=== PATIENT | female | born 1975 | race Caucasian/White ===

== ENCOUNTER → 2020-06-01 11:27 | Outpatient (CLI) | payer OTHER, SELFPAY ==
--- NOTE | ~2020-06-01 | DEXA_ITS ---
Bone Density Report Name: Lilia Patel Age: 44 Sex: Female Ethnicity: White Date of : 1975 Indication: Screening for osteoporosis, height loss Referring Provider: PHYSICIAN NOT ON STAFF Study: Bone densitometry was performed. Exam Date: June 01, 2020 Accession number: [id number] Bone Density: Region BMD T-score Z-score Classification AP Spine (L1-L4) 0.921 -1.1 -0.8 Osteopenia Femoral Neck (Left) 0.592 -2.3 -1.9 Osteopenia Total Hip (Left) 0.687 -2.1 -1.8 Osteopenia Femoral Neck (Right) 0.625 -2.0 -1.6 Osteopenia Total Hip (Right) 0.625 -2.6 -2.3 Osteoporosis Total Hip Mean 0.656 -2.4 -2.1 Osteopenia World Health Organization criteria for BMD impression classify patients as: Normal (T-score at or above -1.0), Osteopenia (T-score between -1.0 and -2.5), or Osteoporosis (T-score at or below -2.5). 10-year Fracture Risk: FRAX not reported because: Some T-score for Spine Total or Hip Total or Femoral Neck at or below -2.5 Clinical Information Provided by Patient: Has used the following medications: Vitamin D, Calcium, Spironolactone, MTV Patient maximum height was 68 No regular weight bearing exercise Onset of menses at age 14 Premenopausal Number of children 2 Missed period for more than 6 months in a row Impression: The patient's bone mass is below expected range for age, gender and ethnicity based on the Right Total Hip Z-score. Discussion: BONE DENSITY IS ABNORMALLY LOW FOR AGE, SEX, AND RACE. This patient's lowest Z-score is -2.0 or more below average for age, sex, and race at one or more sites. This may be due to low peak bone mass or to excessive bone loss. There may be some underlying disease or condition contributing to reduced bone mass. Further evaluation should be considered. Although there is a predictable association between low bone mass and the risk of osteoporotic fractures in untreated postmenopausal women, there are no data relating bone density and fracture risk in younger women. The ISCD position is that the diagnosis of ?low bone mass? or ?osteoporosis? should not be made on densitometric criteria alone. WHO criteria only apply to postmenopausal women. The 10-year fracture risk calculated by FRAX is less than the threshold recommended by the National Osteoporosis Foundation (NOF) for treatment for postmenopausal women, and no threshold has been established for premenopausal women. All treatment decisions require clinical judgment and consideration of individual patient factors, including patient preferences, comorbidities, previous drug use, risk factors not captured in the FRAX model (e.g., frailty, falls, vitamin D deficiency, increased bone turnover, interval significant decline in bone density) and possible under or overestimation of fracture risk by FRAX. Although pharmacologic
--- NOTE | ~2020-06-01 | CT_ITS ---
EXAMINATION: CT chest abdomen pelvis wo con DATE: 06/01/2020 12:18 INDICATION: Weight loss. Family history of thyroid disease. Bloating. TECHNIQUE: Computed tomography (CT) of the chest, abdomen, and pelvis was performed without intraveno us contrast. Automated exposure control and iterative reconstruction technique were employed. Exam do se: 271.42 mGy-cm total exam DLP. COMPARISON: None FINDINGS: CHEST CT: Small pericardial effusion. Normal heart size. No hilar or mediastinal mass lesion or lymphadenopat hy. No thoracic aortic aneurysm. Mild bilateral apical scarring. No pulmonary infiltrate or consolidation. No pleural effusion. No pneumothorax. ABDOMEN/PELVIS CT: The liver, spleen, pancreas, adrenal glands and kidneys are unremarkable on this limited noncontrast examination. No bile or pancreatic duct dilatation. No urinary tract calculus or hydroureteronephro sis. Normal caliber of the abdominal aorta. No intraperitoneal or retroperitoneal or pelvic mass lesion o r lymphadenopathy or ascites. The urinary bladder, uterus and adnexal areas are unremarkable. There is a prominent amount of feces in the colon, but no obstruction. No pneumatosis or intraperito alejandra free air. Acute lumbosacral angle. No suspicious osteolytic or osteoblastic lesions. IMPRESSION: Small pericardial effusion Reviewed, dictated and finalized at Location A. Reviewed, dictated and finalized at location A. IMPRESSION: Small pericardial effusion
== END ==
DX: Z13.820 Encounter for screening for osteoporosis (principal); I31.3 Pericardial effusion (noninflammatory); M85.89 Other specified disorders of bone density and structure, multiple sites; M81.0 Age-related osteoporosis without current pathological fracture
CPT/HCPCS: 71250; 74176; 77080

== ENCOUNTER 2020-07-02 12:47 | Outpatient (CLI) | payer OTHER, SELFPAY ==
--- NOTE | 2020-07-02 | ECHO_ITS ---
Patient Info Name: Lilia Patel Age: 45 years : 1975 Gender: Female Ht: 67 in Wt: 95 lbs BSA: 1.41 m2 HR: 60 bpm BP: 97 / 66 mmHg Heart Rhythm: Sinus Rhythm Technical Quality: Good Exam Date: 07/02/2020 1:15 PM Exam Location: [facility] Patient Status: Outpatient Admit Date: 07/02/2020 Staff Ordering Physician: PHYSICIAN NOT ON STAFF, NONSTAFF Coordinator Of Genetic Services: Deo Trevino RDCS, RT Attending Provider: PHYSICIAN NOT ON STAFF, NONSTAFF Exam Type: CA echo doppler color flow Study Info Indications I31.3 - Pericardial effusion (noninflammatory) Complete two-dimensional, color flow and Doppler transthoracic echocardiogram is performed. Summary 1. Complete two-dimensional, color flow and Doppler transthoracic echocardiogram is performed. 2. Trivial pericardial effusion. 3. Mild bileaflet mitral valve prolapse with no mitral regurgitation. Left Ventricular Outflow Tract Name Value Normal LVOT 2D LVOT Diameter 2.0 cm LVOT Doppler LVOT Peak Gradient 2 mmHg LVOT Mean Gradient 1 mmHg LVOT VTI 16 cm LVOT VTI/AV VTI Ratio 0.8 LVOT Stroke Volume 48 ml LVOT CO 2.9 l/min LVOT CI 2.1 l/min/m2 Mitral Valve Name Value Normal MV Doppler MV Decel Morris 359 cm/s2 MV PHT 70 ms MV Area (PHT) 3.2 cm2 4.0-5.0 MV Diastolic Function MV E Peak Velocity 86 cm/s MV A Peak Velocity 39 cm/s MV E/A 2.2 MV Decel Time 240 ms MV Annular TDI MV E/e' (Septal) 7.5 <=8.0 MV E/e' (Lateral) 6.9 <=8.0 MV E/e' (Average) 7.2 Tricuspid Valve Name Value Normal TV Regurgitation Doppler TR Peak Velocity 213 cm/s TR Peak Gradient 16 mmHg TV Diastolic Function RV MPI 0.21 <=0.43 Aortic Valve Name Value Normal
== END 2020-07-02 12:48 | disposition home or self-care (01) ==
DX: I34.1 Nonrheumatic mitral (valve) prolapse (principal); I31.3 Pericardial effusion (noninflammatory)
CPT/HCPCS: 93306

== ENCOUNTER → 2020-08-07 11:33 | Outpatient (CLI) | payer OTHER, SELFPAY ==
--- NOTE | ~2020-08-07 | MM_ITS ---
EXAMINATION: MM screening umair BI w david HISTORY: Screening mammogram TECHNIQUE: Craniocaudal and mediolateral oblique 3-D tomosynthesis images were obtained and synthetic 2-D images were generated. CAD analysis was submitted and interpreted. COMPARISON: 12/15/2018 BREAST PARENCHYMAL COMPOSITION: The breasts are heterogeneously dense, which may obscure small masses . FINDINGS: Scattered benign-appearing calcifications are present. There is no evidence of suspicious m ass, calcification, or architectural distortion to suggest malignancy in either breast. There has bee n no suspicious interval change. IMPRESSION: 1. No mammographic evidence of malignancy. 2. Recommend routine screening mammography in one year. BI-RADS Category 2: Benign finding(s). Reviewed, dictated and finalized at location A. TATION TECHNICIAN
== END ==
PROVIDERS: PCP Family Medicine; Visit Provider Family Medicine
DX: Z12.31 Encounter for screening mammogram for malignant neoplasm of breast (principal)
CPT/HCPCS: 77063; 77067

== ENCOUNTER → 2021-01-25 07:52 | Outpatient (CLI) | payer OTHER, SELFPAY ==
--- NOTE | ~2021-01-25 | US_ITS ---
US right upper quadrant INDICATION: Elevated liver enzymes PROCEDURE: Realtime right upper abdominal ultrasound. COMPARISON: No prior studies for comparison. FINDINGS: The pancreas is normal without focal mass or pancreatic ductal dilation. Liver echotexture is normal without focal mass or intrahepatic biliary dilatation. There is normal directional flow i n the portal vein. The gallbladder is normal without stones, gallbladder wall thickening or pericholecystic fluid. Comm on bile duct measures 3 mm. No sonographic Trevino's sign. IMPRESSION: 1: Normal limited abdominal ultrasound. Reviewed, dictated and finalized at location B.
== END ==
PROVIDERS: PCP Family Medicine; Visit Provider Family Medicine
DX: R74.8 Abnormal levels of other serum enzymes (principal)
CPT/HCPCS: 76705

== ENCOUNTER → 2022-12-05 09:19 | Outpatient (CLI) | payer OTHER, SELFPAY ==
--- NOTE | ~2022-12-05 | DEXA_ITS ---
Bone Density Report Name: RANDEE HERRING Age: 47 Sex: Female Ethnicity: White Date of : 1975 Indication: postmenopausal osteoporosis; Referring Provider: PEGGY, SILVERIO Study: Bone densitometry was performed. Exam Date: December 05, 2022 Accession number: [id number] Bone Density: Region BMD T-score Z-score Classification AP Spine (L1-L4) 0.905 -1.3 -0.8 Osteopenia Femoral Neck (Left) 0.564 -2.6 -2.1 Osteoporosis Total Hip (Left) 0.664 -2.3 -1.9 Osteopenia Femoral Neck (Right) 0.576 -2.5 -1.9 Osteoporosis Total Hip (Right) 0.583 -2.9 -2.6 Osteoporosis Total Hip Mean 0.624 -2.6 -2.3 Osteoporosis World Health Organization criteria for BMD impression classify patients as: Normal (T-score at or above -1.0), Osteopenia (T-score between -1.0 and -2.5), or Osteoporosis (T-score at or below -2.5). 10-year Fracture Risk: FRAX not reported because: Some T-score for Spine Total or Hip Total or Femoral Neck at or below -2.5 Previous Exams: Region Exam Age BMD T-score BMD Change BMD Change Date g/cm2 vs Baseline vs Previous AP Spine(L1-L4) 12/05/2022 47 0.905 -1.3 -0.015 -0.015 06/01/2020 44 0.921 -1.1 Total Hip(Left) 12/05/2022 47 0.664 -2.3 -0.023 -0.023 06/01/2020 44 0.687 -2.1 Total Hip(Right) 12/05/2022 47 0.583 -2.9 -0.042* -0.042* 06/01/2020 44 0.625 -2.6 *Denotes significance at 95% confidence level, LSC for AP Spine = 0.022 g/cm2, LSC for Total Hip = 0.027 g/cm2 Clinical Information Provided by Patient: Has used the following medications: Vitamin D, Calcium, MTV Patient maximum height was 68 Menopause Age: 41 No regular weight bearing exercise Drinks caffeinated beverages Onset of menses at age 14 Number of children 2 Missed period for more than 6 months in a row Impression: The patient has osteoporosis, based on the Right Total Hip T-score. The BMD for the Total Hip(Right) decreased, changing by -0.042 since the last DXA exam. Discussion: HIGH RISK OF FRACTURE. BONE DENSITY IS UNDESIRABLY LOW AT ONE OR MORE SKELETAL SITES, CONSISTENT WITH OSTEOPOROSIS. ALSO, BONE DENSITY IS LOWER THAN EXPECTED FOR AGE AND SEX AT ONE OR MORE SKELETAL SITES; RECOMMEND A DILIGENT SEARCH FOR SECONDARY CAUSES OF BONE LOSS. This patient's lowest T-score meets the World Health Organization's (WHO) criteria for osteoporosis at one or more sites (T-score -2.5 or below). In untreated patients, the r
== END ==
PROVIDERS: PCP Family Medicine; Visit Provider Family Medicine
DX: M85.89 Other specified disorders of bone density and structure, multiple sites (principal); M81.0 Age-related osteoporosis without current pathological fracture
CPT/HCPCS: 77080

== ENCOUNTER → 2023-08-07 13:53 | Outpatient (CLI) | payer OTHER, SELFPAY ==
--- NOTE | ~2023-08-07 | US_ITS ---
EXAMINATION: US transvaginal DATE: 08/07/2023 14:22 INDICATION: Irregular menstruation TECHNIQUE: Multiple endovaginal sonographic images of the pelvis were obtained. COMPARISON: None. FINDINGS: The uterus measures 7.9 x 3.4 x 4.3 cm. The endometrial complex measures 5 mm. The right ov mart measures 1.7 x 2 x 1.2 cm. The left ovary measures 2.1 x 0.9 x 2 cm. There is normal vascular kiki w in the ovaries. There is no free fluid in the pelvis. IMPRESSION: 1. No sonographic correlate for the patient's symptoms. Reviewed, dictated and finalized at location B. CH LANGUAGE PATHOLOGIST PRN
== END ==
PROVIDERS: PCP Family Medicine; Visit Provider Family Medicine
DX: N92.6 Irregular menstruation, unspecified (principal)
CPT/HCPCS: 76830

== ENCOUNTER → 2023-10-09 14:59 | Outpatient (CLI) | payer OTHER, SELFPAY ==
--- NOTE | ~2023-10-09 | MM_ITS ---
EXAMINATION: MM screening umair BI w david HISTORY: Screening TECHNIQUE: Craniocaudal and mediolateral oblique 3-D tomosynthesis images were obtained and synthetic 2-D images were generated. CAD analysis was submitted and interpreted. COMPARISON: Comparison to multiple prior studies sequentially, with oldest reviewed study dated 12/24. BREAST PARENCHYMAL COMPOSITION: The breasts are heterogeneously dense, which may obscure small masses FINDINGS: Stable benign-appearing right breast calcifications. There is no evidence of suspicious mas s, calcification, or architectural distortion to suggest malignancy in either breast. There has been no suspicious interval change. IMPRESSION: 1. No mammographic evidence of malignancy. 2. Recommend routine screening mammography in one year. BI-RADS Category 2: Benign finding(s). Reviewed, dictated and finalized at location A. R FABRICATION TECHNICIAN
== END ==
PROVIDERS: PCP Family Medicine; Visit Provider Family Medicine
DX: Z12.31 Encounter for screening mammogram for malignant neoplasm of breast (principal)
CPT/HCPCS: 77063; 77067

== ENCOUNTER 2024-01-27 08:43 | Emergency (ER) | payer OTHER, SELFPAY ==
[2024-01-27 08:48] VITALS: BP 99/52; PULSE 71; RESP 16; TEMP 36.2; O2SAT 100
--- NOTE | 2024-01-27 09:22 | ED.GENADULT ---
HPI - General Adult General Chief complaint: Nausea/Vomiting/Diarrhea Stated complaint: FACIAL/SCALP REDNESS/PRESSURE/NAUSEA/LIGHT HEADED Time Seen by Provider: 01/27/24 09:04 Source: patient and RN notes reviewed Mode of arrival: ambulatory Limitations: no limitations History of Present Illness HPI narrative: Patient presents today complaining of sudden onset near syncopal episode, nausea, facial flushing and redness extending to her scalp. States this started after taking a new brand B vitamin at home and lasted approximately 20 mins. She also started experiencing some abdominal cramping. She did not pass out. Upon arrival at [facility], she had a loose stool. Denies facial swelling, shortness of breath, difficulty swallowing. Related Data Home Medications Medication Instructions Recorded Confirmed metronidazole 0.75 % (37.5 mg/5 1 appful vaginal HS 01/27/24 01/27/24 gram) vaginal gel Allergies Allergy/AdvReac Type Severity Reaction Status Date / Time No Known Allergies Allergy Mild Verified 01/27/24 09:05 Review of Systems Review of Systems: CONSTITUTIONAL: Denies body aches, fever, chills, or sweats. EYES: Denies visual changes, redness, or discharge. ENT: Denies rhinorrhea, congestion, sore throat, or otalgia. CARDIOVASCULAR: Denies chest pain, palpitations, or edema. RESPIRATORY: Denies cough or dyspnea. GASTROINTESTINAL: Denies abdominal pain, vomiting, or diarrhea.+ nausea, abdominal cramping GENITOURINARY: Denies dysuria or hematuria. SKIN: Denies rash, itching, or wounds. + flushing and rash-resolved MUSCULOSKELETAL: Denies back pain, joint pain, or myalgia. NEUROLOGIC: Denies headache, numbness, tingling, or weakness. + lightheadedness, near-syncope PSYCH: Denies depression or anxiety. PMFSH Social History Social History Smoking status: Never smoker Second hand tobacco smoke exposure: No Alcohol intake: current Drinks per week: 1 Substance use: never Comments At time of signature, I have reviewed and agree with nursing past medical, surgical, social and family history unless otherwise noted. Please see nursing chart for further information. There is no relevant family history pertinent to the presenting complaint Exam Narrative: GENERAL: Chronically ill appearing, well-nourished, and in no acute distress. HEAD: Normocephalic, atraumatic. No facial swelling noted. EYES: EOMI. PERRL. No redness or drainage. Conjunctivae normal. ENT: Mucous membranes pink and moist. Nares clear. No rhinorrhea. Throat normal. Uvula midline. NECK: Normal AROM. Supple. No lymphadenopathy. CHEST: No respiratory distress. Clear to auscultation. HEART: Regular rate and rhythm. No murmur appreciated. ABDOMEN: Soft, nontender, nondistended, normal active bowel sounds. MUSCULOSKELETAL: No bony tenderness. EXTREMITIES: Normal range of motion. No edema. SKIN: Warm, dry, no rash. Capillary refill normal. Normal skin turgor. Mild generalized skin pallor. NEURO: No focal deficits. Alert and oriented x3. Gait steady. PSYCH: Patient talks very slowly and softly. Seems to be baseline. Course Course Level of Care: Express Care Visit Vital Signs Vital signs: Vital Signs Temperature 97.1 F L 01/27/24 08:48 Pulse Rate 71 01/27/24 08:48 Respiratory Rate 16 01/27/24 08:48 Blood Pressure 99/52 L 01/27/24 08:48 Pulse Oximetry 100 01/27/24 08:48 Temperature 97.1 F L 01/27/24 08:48 Pulse Rate 71 01/27/24 08:48 Respiratory Rate 16 01/27/24 08:48 Blood Pressure 99/52 L 01/27/24 08:48 Pulse Oximetry 100 01/27/24 08:48 Oxygen Delivery Room Air 01/27/24 08:52 Reviewed Transfer Transfered to: [place] Transportation: Other (Private vehicle) Transfer rationale: Near syncope, abdominal cramping Accepting physician: Santiago Medical Decision Making MDM Narrative Medical decision making narrative: At
--- NOTE | 2024-01-27 09:26 | PC.NURSE ---
PT REPORTED SHE HAD A LOOSE STOOL WHILE AT URGENT CARE. PT IS REQUESTING TO GO TO [facility] FOR FURTHER EVALUATION. IS AT BEDSIDE. PT AMBULATED TO WITHOUT DIFFICULTY.
== END 2024-01-27 09:30 | disposition short-term general hospital (02) ==
PROVIDERS: Emergency Provider Nurse Practitioner; PCP Family Medicine
DX: R55 Syncope and collapse (principal); R10.9 Unspecified abdominal pain
CPT/HCPCS: 99213; G0463

== ENCOUNTER 2024-01-27 09:48 | Emergency (ER) | payer OTHER, SELFPAY ==
[2024-01-27] VITALS (8 sets, daily range): BP systolic 103–118; BP diastolic 62–77; PULSE 58–73; RESP 13–20; TEMP 36.6–36.7; O2SAT 100
--- NOTE | 2024-01-27 10:02 | ECG_ITS ---
SEE SCANNED COPY FOR CONFIRMED REPORT. MTDD
[2024-01-27 10:23] LABS: Basophils Percent Auto 0.4 % (0.2-1.2); Eosinophils Absolute Auto 0.1 K/mm3 (0-0.3); Eosinophils Percent Auto 1.4 % (0-4.4); Hematocrit 36.9 % (37.0-47.0); Hemoglobin 12.1 g/dL (12.0-15.0); Immature Granulocyte Absolute 0.03 K/mm3 (0.00-0.031); Immature Granulocyte Percent A 0.4 % (0-0.5); Lymphocytes Absolute Auto 0.47 K/mm3 (0.9-3.2); Lymphocytes Percent Auto 6.6 % (18.3-44.2); Mean Corpuscular HGB Conc 32.8 g/dl (32-36); Mean Corpuscular Hemoglobin 29.8 pg (26-34); Mean Corpuscular Volume 90.9 fl (80-100); Mean Platelet Volume 10.1 fl (7.4-10.4); Monocytes Absolute Auto 0.5 K/mm3 (0.1-0.6); Monocytes Percent Auto 7.4 % (2.6-8.5); Neutrophils Percent Auto 83.8 % (45.5-73.1); Platelet Count Result 195 k/mm3 (150-375); Red Blood Count 4.06 M/mm3 (4.2-5.4); Red Cell Distribution Width 13.7 % (11.5-14.5); White Blood Count 7.1 K/mm3 (4.5-10.0)
[2024-01-27 10:32] LABS: Alanine Aminotransferase 28 U/L (6-35); Albumin Level 4.1 g/dL (3.5-5.1); Alkaline Phosphatase 75 U/L (38-126); Anion Gap 4 mmol/L (4-12); Aspartate Amino Transferase 32 U/L (14-36); Bilirubin,Total 0.6 mg/dL (0.2-1.3); Blood Urea Nitrogen 19 mg/dL (7-17); Calcium 9.1 mg/dL (8.4-10.2); Carbon Dioxide 28 mmol/L (22-30); Chloride 103 mmol/L (98-107); Estimated CRCL calculation 74 ml/min; Estimated Glomerular Filt Rate > 60; Glucose 97 mg/dL (65-110); Potassium 3.9 mmol/L (3.4-5.0); Sodium 135 mmol/L (137-145)
[2024-01-27] MEDS: SODIUM CHLORIDE 0.9% IV 1,000 ML 999 ML IV CONT (11:09)
--- NOTE | 2024-01-27 12:15 | ED.GENADULT ---
HPI - General Adult General Chief complaint: Dizziness Stated complaint: ?reaction to vit B Time Seen by Provider: 01/27/24 10:12 History of Present Illness HPI narrative: Patient is a 48-year-old female who presents ER after having a possible reaction to medication. She took her 1st dose of vitamin B complex. 30 minutes later she developed flushing of her skin. She then got upset stomach and had some diarrhea. She did feel lightheaded. She went to urgent care but was referred here. Symptoms have since resolved. After reviewing medication it appears she had 50mg of Niacin in the vitamin Related Data Home Medications Medication Instructions Recorded Confirmed metronidazole 0.75 % (37.5 mg/5 1 appful vaginal HS 01/27/24 01/27/24 gram) vaginal gel Allergies Allergy/AdvReac Type Severity Reaction Status Date / Time No Known Allergies Allergy Mild Verified 01/27/24 09:05 Review of Systems Review of Systems: All systems reviewed & are unremarkable except as noted in HPI and below Constitutional: Constitutional: Reports no additional constitutional complaints ENT: Reports system reviewed and no additional complaints, except as documented Respiratory: Respiratory: Reports no additional respiratory complaints Gastrointestinal: Gastrointestinal: Reports abdominal pain, Denies constipation, Reports diarrhea and Denies vomiting Genitourinary: Genitourinary: Reports no additional female genitourinary complaints Musculoskeletal: Musculoskeletal: Reports no additional musculoskeletal complaints Integumentary/Breasts: Skin/Breast: Reports erythema and Reports rash PMFSH Past Medical History Medical History (Updated 01/27/24 @ 12:24 by Femi Henderson MD) Healthy female adult Social History Social History Smoking status: Never smoker Second hand tobacco smoke exposure: No Alcohol intake: current Drinks per week: 1 Substance use: never Exam Narrative: GENERAL: Well-appearing, well-nourished, and in no acute distress. HEAD: Normocephalic, atraumatic. ENT: Mucous membranes moist. CHEST: Clear to auscultation. No respiratory distress. HEART: Regular rate and rhythm. Normal peripheral pulses. ABDOMEN: Soft, nontender, nondistended. EXTREMITIES: Normal range of motion. No edema. SKIN: Warm, dry, no rash. NEURO: Alert and oriented x3. PSYCH: Normal mood and affect. Course Course Emergency Course: symptoms considered be a side effect of high-dose niacin. Patient educated about vitamin supplements. Discharge. Vital Signs Vital signs: Vital Signs Temperature 98.0 F 01/27/24 09:57 Pulse Rate 68 01/27/24 09:57 Respiratory Rate 14 01/27/24 09:57 Blood Pressure 103/62 01/27/24 09:57 Pulse Oximetry 100 01/27/24 09:57 Oxygen Delivery Room Air 01/27/24 09:57 Temperature 98.0 F 01/27/24 09:57 Pulse Rate 68 01/27/24 10:02 Respiratory Rate 14 01/27/24 09:57 Blood Pressure 117/77 01/27/24 10:02 Pulse Oximetry 100 01/27/24 09:57 Oxygen Delivery Room Air 01/27/24 09:57 Medical Decision Making Vital Signs Vital Signs: Vital Signs Temperature 98.0 F 01/27/24 09:57 Pulse Rate 68 01/27/24 09:57 Respiratory Rate 14 01/27/24 09:57 Blood Pressure 103/62 01/27/24 09:57 Pulse Oximetry 100 01/27/24 09:57 Oxygen Delivery Room Air 01/27/24 09:57 Temperature 98.0 F 01/27/24 09:57 Pulse Rate 68 01/27/24 10:02 Respiratory Rate 14 01/27/24 09:57 Blood Pressure 117/77 01/27/24 10:02 Pulse Oximetry 100 01/27/24 09:57 Oxygen Delivery Room Air 01/27/24 09:57 Lab Data 01/27/24 10:17 01/27/24 10:17 Labs: Lab Results 01/27/24 Range/Units 10:17 WBC 7.1 (4.5-10.0) K/mm3 RBC 4.06 L (4.2-5.4) M/mm3 Hgb 12.1 (12.0-15.0) g/dL Hct 36.9 L (37.0-47.0) % MCV 90.9 (80-100) fl MCH 29.8 (26-34) pg
== END 2024-01-27 12:35 | disposition home or self-care (01) ==
PROVIDERS: Emergency Provider Emergency Medicine; PCP Family Medicine
DX: R19.7 Diarrhea, unspecified (principal); R23.2 Flushing; R11.0 Nausea; T46.7X5A Adverse effect of peripheral vasodilators, initial encounter; I45.10 Unspecified right bundle-branch block; R00.1 Bradycardia, unspecified
CPT/HCPCS: 36415; 80053; 85025; 93005; 99284; J7030

== ENCOUNTER 2024-12-06 12:46 | Outpatient (CLI) | payer OTHER, SELFPAY ==
--- NOTE | ~2024-12-06 | DEXA_ITS ---
Bone Density Report Name: RANDEE HERRING Age: 49 Sex: Female Ethnicity: White Date of : 1975 Indication: Referring Provider: MISSY, ARLETTE Study: Bone densitometry was performed. Exam Date: December 06, 2024 Accession number: [id number] Bone Density: Region BMD T-score Z-score Classification AP Spine(L1-L4) 0.884 -1.5 -0.8 Osteopenia Femoral Neck (Left) 0.582 -2.4 -1.8 Osteopenia Total Hip (Left) 0.674 -2.2 -1.8 Osteopenia Femoral Neck (Right) 0.583 -2.4 -1.8 Osteopenia Total Hip (Right) 0.639 -2.5 -2.1 Osteoporosis Total Hip Mean 0.656 -2.4 -2.0 Osteopenia World Health Organization criteria for BMD impression classify patients as: Normal (T-score at or above -1.0), Osteopenia (T-score between -1.0 and -2.5), or Osteoporosis (T-score at or below -2.5). 10-year Fracture Risk: FRAX not reported because: Premenopausal woman Some T-score for Spine Total or Hip Total or Femoral Neck at or below -2.5 Clinical Information Provided by Patient: Has used the following medications: Vitamin D, Calcium Patient maximum height was 68 No regular weight bearing exercise Drinks caffeinated beverages Onset of menses at age 14 Premenopausal Number of children 2 Missed period for more than 6 months in a row Impression: The patient's bone mass is below expected range for age, gender and ethnicity based on the Right Total Hip Z-score. Discussion: BONE DENSITY IS ABNORMALLY LOW FOR AGE, SEX, AND RACE. This patient's lowest Z-score is -2.0 or more below average for age, sex, and race at one or more sites. This may be due to low peak bone mass or to excessive bone loss. There may be some underlying disease or condition contributing to reduced bone mass. Further evaluation should be considered. Although there is a predictable association between low bone mass and the risk of osteoporotic fractures in untreated postmenopausal women, there are no data relating bone density and fracture risk in younger women. The ISCD position is that the diagnosis of ?low bone mass? or ?osteoporosis? should not be made on densitometric criteria alone. WHO criteria only apply to postmenopausal women. The 10-year fracture risk calculated by FRAX is less than the threshold recommended by the National Osteoporosis Foundation (NOF) for treatment for postmenopausal women, and no threshold has been established for premenopausal women. All treatment decisions require clinical judgment and consideration of individual patient factors, including patient preferences, comorbidities, previous drug use, risk factors not captured in the FRAX model (e.g., frailty, falls, vitamin D deficiency, increased bone turnover, interval significant decline in bone density) and possible under or overestimation of fracture risk by FRAX. Although pharmacologic therapy is sometimes indicated for patients with Z-scores in this range, there is little information available. A decision to treat should be based on a thorough consideration of benefits and risks. The patient should follow a healthful lifestyle (good nutrition with adequate calcium and vitamin D, and appropriate weight-bearing exercise). Follow-Up: Consider a repeat BMD and Vertebral Fracture Assessment (VFA) exam in 2 years or sooner if medically necessary, to reassess this patient's status. Reported by: BEATRICE on 12/06/2024 1:24:00 PM. Reviewed, dictated and finalized at location A. MIGUEL
--- OUTSIDE RECORDS SUMMARY | 2024-12-06 13:58 | XMS_ITS | Clinical Summary ---
Author Organization [facility] Address [address] [place] [address] Care Team Providers Care Solution Director Name Role Phone Shikha David MD Primary Care Provider Source Comments [facility],non-owned Affiliates and Associated Physician Practices is amultiple site organization consisting of ambulatory clinics and hospital sitesin [place], [place], [place] and [place]. This disclosure is being madepursuant to the Care Everywhere program and may not contain all information available regarding this patient. Last updated 18.[facility] Active Problems Problem Noted Date Diagnosed Date Abnormal levels of other serum enzymes 5 Overview (12/28/2017): Mild elevations in the 30's Low level positive ASMA titer, GEORGETTE negative 12/2014 AST 25, ALT 27 04/2015- LABS Iron % sat 27, tsh 1.46, Creatinine 0.77, t bili 0.8, ap 70, ALT 20, AST 24, WBC 6.5, Hgb 14.1, Plt 235 Acne 01/08/2015 Overview (12/28/2017): Started spironolactone in 2014 Other seasonal allergic rhinitis 01/08/2015 Amenorrhea 01/08/2015 Overview (12/28/2017): Since delivering second child Sep 2012 Social History Tobacco Use Types Packs/Day Years Used Date Smoking Tobacco: Never Smokeless Tobacco: Never Alcohol Use Standard Drinks/Week Comments Yes 0 (1 standard drink = 0.6 oz pur e alcohol) Sex and Gender Information Value Date Recorded Sex Assigned at Not on file Gender Identity Not on file Sexual Orientation Not on file Last Filed Vital Signs Vital Sign Reading Time Taken Comments Blood Pressure 96/57 02/27/2015 2:10 PM CDT Pulse 75 02/27/2015 2:10 PM CDT Temperature 36.8 C (98.2 F) 02/27/2015 2:10 PM CDT Respiratory Rate 18 02/27/2015 2:10 PM CDT Oxygen Saturation - - Inhaled Oxygen Concentration - - Weight 46.2 kg (101 lb 14.4 oz) 02/27/2015 2:10 PM CDT Height 170.2 cm (5' 7 ) 02/27/2015 2:10 PM CDT Body Mass Index 15.96 02/27/2015 2:10 PM CDT Plan of Treatment Health Maintenance Due Date Last Done Comments COLOGUARD (AGES 45-75) - COL ON CA SCREENING 1975 COLON MONITORING 1975 COLONOSCOPY - COLON CA SCREENING 1976 CT COLONOGRAPHY - COLON CA SCREENING 1975 Colorectal Cancer Screening 1975 FIT - COLON CA SCREENING 1975 FLEX SIG - COLON CA SCREENING 1975 LIPID TESTING 1975 MAMMOGRAM 1975 PAP SMEAR 1975 HIV SCREENING 1991 HEPATITIS C SCREENING 06/09/1994 DTAP/TDAP/TD VACCINES (1 - Tdap) 1995 HEPATITIS B VACCINE (1 of 3 - 19+ 3-dose series) 1995 COVID-19 VACCINE ( - 2023-2 5 season) 2024 INFLUENZA VACCINE (#1) 2024 DEPRESSION SCREENING 09/28/2024 ZOSTER VACCINE (1 of 2) 2026 HIB VACCINE Aged Out No longer eligi ble based on patient's age to complete this topic HPV VACCINE Aged Out No longer eligi ble based on patient's age to complete this topic MENINGOCOCCAL (Group B) VACCINE Aged Out No longer eligible based on patient's age to complete this topic MENINGOCOCCAL VACCINE Aged Out No vandana rosanna eligible based on patient's age to complete this topic PNEUMOCOCCAL VACCINE Aged Out No long er eligible based on patient's age to complete this topic Care Teams Solution Director Relationship Specialty Start Date End Date Shikha David MD [address] [place] [address] [address] [place] [id number] PCP - General 04/15/10
--- OUTSIDE RECORDS SUMMARY | 2024-12-06 13:58 | XMS_ITS | Encounter Summary ---
Author Organization [facility] Address [address] [place] [address] Care Team Providers Care Executive Cyber Leader Name Role Phone Madelyn Arvizu DO Primary Care Provider [phone] Encounter Details Date Type Department Care Team (Latest Contact Info) Description 05/07/2022 [employer] Message Enc [facility] Family Medicine [facility] [address], [address] [place] [address] [employer], [facility] Provider Dr. Arvizu recommendations Social History Tobacco Use Types Packs/Day Years Used Date Smoking Tobacco: Never Smokeless Tobacco: Never Alcohol Use Standard Drinks/Week Comments Yes 0 (1 standard drink = 0.6 oz pur e alcohol) PHQ-2 Answer Date Recorded PHQ-2 Score - If the patient scores above 3, please move on to questions 3-9 2 04/30/2022 Comments No Sex and Gender Information Value Date Recorded Sex Assigned at Not on file Legal Sex Female 4:09 PM CDT Gender Identity Not on file Sexual Orientation Not on file COVID-19 Exposure Response Date Recorded In the last 10 days, have yo u been in contact with someone who was confirmed or suspected to have Coronavirus/COVID-19? No / Unsure 04/30/2022 9:53 AM CDT documented as of this encounter Plan of Treatment Not on file documented as of this encounter Visit Diagnoses Not on filedocumented in this encounter Additional Health Concerns Assessment Noted Time PHQ-9 Depression Total Score: 5 04/30/20 22 11:08 AM CDT documented as of this encounter Care Teams Executive Cyber Leader Relationship Specialty Start Date End Date Madelyn Arvizu DO [address] [place] [address] PCP - General FAMILY PRACTICE 05/23/20 documented as of this encounter
--- OUTSIDE RECORDS SUMMARY | 2024-12-06 13:58 | XMS_ITS | Clinical Summary ---
Author Organization [facility] Address [place] [address] Care Team Providers Care Estate Conservator Name Role Phone Madelyn Arvizu DO Primary Care Provider [phone] Allergies Active Allergy Reactions Criticality Noted Date Comments Latex Unknown 07/17/2023 Medications ACZONE 7.5 % Gel as needed. 12/13/2019 Active Bacillus Coagulans-Inuli n (PROBIOTIC) 1-250 BILLION-MG Cap Activ e Multiple Vitamins-Minera ls (MULTIVITAMIN ADULT OR) Active [place]-3 Fatty Acids (OMEGA-3 FISH OIL OR) Active CALCIUM OR Active acetylcysteine (NAC) 600 MG Cap Active Digestive Enzymes Cap Active Menatetrenone (VITAMIN K2) 100 MCG Tab Active Clascoterone (WINLEVI) 1 % Cream Active B Complex Cap capsule Take 1 capsule by mouth daily. Active Active Problems Problem Noted Date Diagnosed Date Venous stasis of both lower extremities 06/12/20 22 Abnormal uterine bleeding (AUB) 12/05/2019 Mildly underweight adult 12/05/2019 Natural family planning 11/12/2017 Instruction in natural family planning to avoid 10/28/2017 Abnormal levels of other serum enzymes 5 Overview (01/08/2021): Mild elevations in the 30's Low level positive ASMA titer, GEORGETTE negative 12/2014 AST 25, ALT 27 04/2015- LABS Iron % sat 27, tsh 1.46, Creatinine 0.77, t bili 0.8, ap 70, ALT 20, AST 24, WBC 6.5, Hgb 14.1, Plt 235 Mild elevations in the 30's Low level positive ASMA titer, GEORGETTE negative 12/2014 AST 25, ALT 27 04/2015- LABS Iron % sat 27, tsh 1.46, Creatinine 0.77, t bili 0.8, ap 70, ALT 20, AST 24, WBC 6.5, Hgb 14.1, Plt 235 Acne 01/08/2015 Overview (01/08/2021): Started spironolactone in 2014 Started spironolactone in 2014 Amenorrhea 01/08/2015 Overview (01/08/2021): Since delivering second child Sep 2012 Since delivering second child Sep 2012 Other seasonal allergic rhinitis 01/08/2015 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 Overview (01/08/2021): NONTOX NODUL GOITER NOS NONTOX NODUL GOITER NOS Rectus diastasis of lower abdomen 10/10/2013 Encounters Date Type Department Care Team Description 10/04/2024 Telephone [facility] [address], [address] [place] [phone] Madelyn Arvizu, Lab Results (Vitamin D, Vitamin B=12, Ferritin, TSH, CMP, CBC, Lipid , A1C) 09/29/2024 Telephone [facility] [address], [address] [place] [phone] Madelyn Arvizu DO Record Request 09/27/2024 7:20 AM BUILDING EQUIPMENT INSPECTOR Office Visit [facility] [address], [address] [place] [phone] Madelyn Arvizu DO Dizziness (Pt c/o vertigo x 2 weeks. ) 09/27/2024 Travel from Last 3 Months Immunizations Name Administration Dates Next Due Yousuf (Quadrivalent) 06/23/2019 Fluzone 6 Months+ Quad (0.5 mL Prefilled Syringe) 07/17/2023,08/07/2021,2020 Influenza Adult (Generic) 06/23/2019,,07/02/2017, 016,07/13/2014 Tdap (Generic) 06/15/2009 Family History Medical History Relation Comments Cancer Father bladder Anemia Maternal Grandfather glomerulonephritis Maternal Grandfather Colon Cancer Maternal Grandmother Heart Disease Maternal Grandmother Osteoporosis Maternal Grandmother Stroke Maternal Grandmother Colon Cancer Paternal Grandfather Diabetes Paternal Grandfather Heart Disease Paternal Grandfather Hypertension Paternal Grandfather Relation Status Comments Father Maternal Grandfather Maternal Grandmother Paternal Grandfather Social History Tobacco Use Types Packs/Day Years Used Date Smoking Tobacco: Never Smokeless Tobacco: Never Tobacco Cessation:Counseling Given: No Alcohol Use Standard Drinks/Week Comments Yes 0 (1 standard drink = 0.6 oz pur e alcohol) PHQ-2 Answer Date Recorded Patient Health Questionnaire-2 Score 2 09/27/2024 Comments No Sex and Gender Information Value Date Recorded Sex Assigned at Not on file Legal Sex Female 4:09 PM CDT Gender Identity Not on file Sexual Orientation Not on file Last Filed Vital Signs Vital Sign Reading Time Taken Comments Blood Pressure 118/72 09/27/2024 7:19 AM BUILDING EQUIPMENT INSPECTOR Pulse 75 09/27/2024 7:19 AM BUILDING EQUIPMENT INSPECTOR Temperature 36.3 C (97.4 F) 09/27/2024 7:19 AM BUILDING EQUIPMENT INSPECTOR Respiratory Rate 16 09/27/2024 7:19 AM BUILDING EQUIPMENT INSPECTOR Oxygen Saturation 99% 09/27/2024 7:19 AM BUILDING EQUIPMENT INSPECTOR Inhaled Oxygen Concentration - - Weight 50.4 kg (111 lb 3.2 oz) 09/27/2024 7:19 A M BUILDING EQUIPMENT INSPECTOR Height 170.2 cm (5' 7 ) 09/27/2024 7:19 AM BUILDING EQUIPMENT INSPECTOR Body Mass Index 17.42 09/27/2024 7:19 AM BUILDING EQUIPMENT INSPECTOR Plan of Treatment Health Maintenance Due Date Last Done Comments Hepatitis C 1994 Hepatitis B Vaccines (1 of 3 - 19+ 3-dose series) 1995 DTaP, Tdap and Td Vaccines (2 - Td or Tdap) 06/15/2019 06/15/2009 Annual Physical 08/07/2022 08/07/2021 COVID-19 Vaccine ( season) 2024 Influenza Adult (#1) 2024 07/17/2023, 08/07/2021, 2020, Additional history exists Cervical Cancer Screening Pap Smear (Age 30 to 64) Every 3 Years 07/09/2024 07/09/2021 PHQ-2 (Physician [place]) 09/28/2024 09/27/2024 Mammogram Screening 10/09/2025 10/09/2023 Cervical Cancer Screening Pap with HPV Testing (Age 30 to 64) Every 5 Years 07/09/2026 07/09/2021 Cervical Cancer Screening with HPV 07/09/2026 Colorectal Cancer Screening Colonoscopy (10 Years) 02/22/2031 02/22/2021 Meningococcal B Vaccine Aged Out No l onger eligible based on patient's age to complete this topic Meningococcal Vaccine Aged Out No vandana rosanna eligible based on patient's age to complete this topic Pneumococcal Vaccine: Pediatrics (0 to 5 Years) and At-Risk Patients (6 to 64 Years) Aged Out No longer eligible based on patient's age to complete this topic RSV Immunizations Under 20 Months Aged Out No longer eligible based on patient's age to complete this topic Procedures Procedure Name Priority Date/Time Associated Diagnosis Comments VITAMIN D, 25 OH Routine 09/27/2024 9:10 AM BUILDING EQUIPMENT INSPECTOR VITAMIN B-12 Routine 09/27/2024 9:10 AM BUILDING EQUIPMENT INSPECTOR FERRITIN Routine 09/27/2024 9:10 AM BUILDING EQUIPMENT INSPECTOR Vertigo Screening, lipid TSH W/REFLEX Routine 09/27/2024 9:10 AM BUILDING EQUIPMENT INSPECTOR Vertigo COMPREHENSIVE METABOLIC PANEL Routine 09/27/2024 9:10 AM BUILDING EQUIPMENT INSPECTOR Vertigo CBC W/DIFF AUTOMATED Routine 09/27/2024 9:10 AM BUILDING EQUIPMENT INSPECTOR Vertigo LIPID PANEL Routine 09/27/2024 9:10 AM BUILDING EQUIPMENT INSPECTOR Vertigo Screening, lipid HEMOGLOBIN, GLYCOSYLATED Routine 09/27/2024 9:10 AM BUILDING EQUIPMENT INSPECTOR Vertigo MAMMOGRAM GENERIC (SCAN ORDER) 10/09/2023 OUTSIDE CYTOPATH CERV/VAG INTERPRET (PAP) 07/09/2021 COLONOSCOPY GENERIC (SCAN ORDER) 02/22/2021 from Last 3 Months or Most Recently Relevant to Health Maintenance Results * TSH W/REFLEX (09/27/2024 9:10 AM BUILDING EQUIPMENT INSPECTOR) TSH 2.42 mIU/L [facility] Comment: Reference Range > or = 20 Years 0.40-4.50 Ranges First trimester 0.26-2.66 Second trimester 0.55-2.73 Third trimester 0.43-2.91 09/27/2024 9:10 AM BUILDING EQUIPMENT INSPECTOR 09/27/2024 9:12 AM BUILDING EQUIPMENT INSPECTOR Narrative [facility] Fredy GUIDO - 09/30/2024 1:46 PM BUILDING EQUIPMENT INSPECTOR FASTING:YES FASTING: YES Resulting Agency Comment Performing Organization Information: Site ID: [place] Name: [facility] Address: [address] [place] [address] Director: Courtney Thapa MD us Madelyn Nolberto DO LABORATORY Final Result City Notes Fredy [facility] City Notes [facility] [address] [place], [place] [address] * (ABNORMAL) HEMOGLOBIN, GLYCOSYLATED (09/27/2024 9:10 AM BUILDING EQUIPMENT INSPECTOR) HGB A1C 5.9(H) <5.7 % of total Hgb [place] Comment: For someone without known diabetes, a hemoglobin A1c value between 5.7% and 6.4% is consistent with prediabetes and should be confirmed with a follow-up test. For someone with known diabetes, a value <7% indicates that their diabetes is well controlled. A1c targets should be individualized based on duration of diabetes, age, comorbid conditions, and other considerations. This assay result is consistent with an increased risk of diabetes. Currently, no consensus exists regarding use of hemoglobin A1c for diagnosis of diabetes for children. 09/27/2024 9:10 AM BUILDING EQUIPMENT INSPECTOR 09/27/2024 9:12 AM BUILDING EQUIPMENT INSPECTOR Narrative [facility] [place] [facility] - 09/30/2024 1:46 PM BUILDING EQUIPMENT INSPECTOR FASTING:YES FASTING: YES Resulting Agency Comment Performing Organization Information: Site ID: Name: [facility] Address: [address] [place] [address] Director: Courtney Thapa us Madelyn Nolberto DO LABORATORY Final Result Performing Organization Address [facility]/ZIP Co de Phone Number [facility] - [facility] G[facility]O [facility] hdl therapeuticsLA [place], [place] [id number] [place] [phone], * VITAMIN B-12 (09/27/2024 9:10 AM BUILDING EQUIPMENT INSPECTOR) VITAMIN B12 S/P/B 1,098 200 - 1,100 pg/mL [facility] 09/27/2024 9:10 AM BUILDING EQUIPMENT INSPECTOR 09/27/2024 9:12 AM BUILDING EQUIPMENT INSPECTOR Narrative [facility] [place] [facility] - 09/30/2024 1:46 PM BUILDING EQUIPMENT INSPECTOR FASTING:YES FASTING: YES Resulting Agency Comment Performing Organization Information: Site ID: [email or web address] Name: [email or web address] Address: [address] [place] [address] Director: Courtney Thapa MD us Madelyn Nolberto DO LABORATORY Final Result Performing Organization Address City/[facility]/ZIP Co de Phone Number [facility] [id number] [place] [address], * COMPREHENSIVE METABOLIC PANEL (09/27/2024 9:10 AM BUILDING EQUIPMENT INSPECTOR) GLUCOSE 89 65 - 99 mg/dL [facility] Comment: Fasting reference interval BUN 21 7 - 25 mg/dL [facility] CREATININE S/P/B 0.61 0.50 - 0.99 mg/dL [facility] GFR ESTIMATE 110 > OR = 60 mL/min/1. 73m2 [facility] BUN CREATININE RATIO SEE NOTE: (calc) [facility] Comment: Not Reported: BUN and Creatinine are within reference range. SODIUM S/P/B 139 135 - 146 mmol/L City [facility] POTASSIUM S/P/B 4.5 3.5 - 5.3 mmol/L [facility] CHLORIDE S/P/B 103 98 - 110 mmol/L City [facility] CO2 28 20 - 32 mmol/L City [facility] CALCIUM S/P/B 9.8 8.6 - 10.2 mg/dL [facility] hdl therapeutics [facility] TOTAL PROTEIN S/P/B 7.0 6.1 - 8.1 g/dL [facility] ALBUMIN S/P/B 4.7 3.6 - 5.1 g/dL [facility] GLOBULIN 2.3 1.9 - 3.7 g/dL (calc) [facility] ALBUMIN/GLOBULI N RATIO 2.0 1.0 - 2.5 (calc) [facility] BILIRUBIN TOTAL S/P/B 0.4 0.2 - 1.2 mg/dL City [facility] ALKALINE PHOSPHATASE S/P/B 68 31 - 125 U/L [facility] AST 31 10 - 35 U/L City Notes [facility] ALT 26 6 - 29 U/L City [facility] 09/27/2024 9:10 AM BUILDING EQUIPMENT INSPECTOR 09/27/2024 9:12 AM BUILDING EQUIPMENT INSPECTOR Narrative [facility] - 09/30/2024 1:46 PM BUILDING EQUIPMENT INSPECTOR FASTING:YES FASTING: YES Resulting Agency Comment Performing Organization Information: Site ID: [place] Name: [email or web address] Address: [address] [place] [address] Director: Courtney Thapa MD us Madelyn Nolberto DO LABORATORY Final Result [facility] [place] [facility] [id number] [place] [address] [place] [address], [place] * (ABNORMAL) LIPID PANEL (09/27/2024 9:10 AM BUILDING EQUIPMENT INSPECTOR) CHOLESTEROL 218(H) <200 mg/dL [facility] HDL 93 > OR = 50 mg/dL City [facility] TRIGLYCERIDES 43 <150 mg/dL [facility] LDL (CALCULATED) 112(H) mg/dL (calc) [facility] Comment: Reference range: <100 Desirable range <100 mg/dL for primary prevention; <70 mg/dL for patients with CHD or diabetic patients with > or = 2 CHD risk factors. LDL-C is now calculated using the Willie calculation, which is a validated novel method providing better accuracy than the Friedewald equation in the estimation of LDL-C. Karri SS et al. MARIANNE. 2013;310(59): 6916-7776 (http://education.[employer]/faq/TZW705) CHOL/HDL RATIO 2.3 <5.0 (calc) [facility] NON HDL CHOLESTEROL 125 <130 mg/dL (calc) [facility] Comment: For patients with diabetes plus 1 major ASCVD risk factor, treating to a non-HDL-C goal of <100 mg/dL (LDL-C of <70 mg/dL) is considered a therapeutic option. 09/27/2024 9:10 AM BUILDING EQUIPMENT INSPECTOR 09/27/2024 9:12 AM BUILDING EQUIPMENT INSPECTOR Narrative [facility] - 09/30/2024 1:46 PM BUILDING EQUIPMENT INSPECTOR FASTING:YES FASTING: YES Resulting Agency Comment Performing Organization Information: Site ID: [place] Name: [email or web address] Address: [address] [address] Director: Courtney Thapa MD us Madelyn Nolberto DO LABORATORY Final Result City Notes [facility] [address] [place] [address], * CBC W/DIFF AUTOMATED (09/27/2024 9:10 AM BUILDING EQUIPMENT INSPECTOR) WBC 5.0 3.8 - 10.8 Thousand/u L [facility] RBC 4.42 3.80 - 5.10 Million/uL City [facility] HGB 13.1 11.7 - 15.5 g/dL City [facility] HCT 41.0 35.0 - 45.0 % City [facility] MCV 92.8 80.0 - 100.0 fL City Notes [facility] MCH 29.6 27.0 - 33.0 pg [facility] MCHC 32.0 32.0 - 36.0 g/dL [facility] Comment: For adults, a slight decrease in the calculated MCHC value (in the range of 30 to 32 g/dL) is most likely not clinically significant; however, it should be interpreted with caution in correlation with other red cell parameters and the patient's clinical condition. RDW 12.3 11.0 - 15.0 % [facility] PLT 251 140 - 400 Thousand/u L City [facility] MPV 10.5 7.5 - 12.5 fL [facility] ABS. NEUTROPHILS 3,185 1,500 - 7,800 cells/uL [facility] ABS. LYMPHOCYTES 1,205 850 - 3,900 cells/uL [facility] ABS. MONOCYTES 450 200 - 950 cells/uL [facility] ABS. EOSINOPHILS 120 15 - 500 cells/uL [facility] ABS. BASOPHILS 40 0 - 200 cells/uL City [facility] SEG NEUTROPHILS 63.7 % [facility] LYMPHOCYTES 24.1 % City [facility] MONOCYTES 9.0 % City [facility] EOSINOPHILS 2.4 % [facility] BASOPHILS 0.8 % City [facility] 09/27/2024 9:10 AM BUILDING EQUIPMENT INSPECTOR 09/27/2024 9:12 AM BUILDING EQUIPMENT INSPECTOR Narrative [facility] [place] [facility] - 09/30/2024 1:46 PM BUILDING EQUIPMENT INSPECTOR FASTING:YES FASTING: YES Resulting Agency Comment Performing Organization Information: Site ID: [place] Name: [facility] Address: [id number] [place] [address] [place] [address] Director: Courtney Thapa MD us Madelyn Nolberto DO LABORATORY Final Result City Notes - [place] [facility] [id number] [place] [address] [place] [address], [place] * VITAMIN D, 25 OH (09/27/2024 9:10 AM BUILDING EQUIPMENT INSPECTOR) [facility] VITAMIN D 25 HYDROXY TOTAL S/P/B 82.2 >29.9 ng/mL [facility] Comment: This test was developed and its analytical performance characteristics have been determined by [facility]. It has not been cleared or approved by the U.S. Food and Drug Administration. This assay has been validated pursuant to the CLIA regulations and is used for clinical purposes. Vitamin D, 25-Hydroxy reports concentrations of two common forms, 25-OHD2 and 25-OHD3. 25-OHD3 indicates both endogenous production and supplementation. 25-OHD2 is an indicator of exogenous sources, such as diet or supplementation. Therapy is based on measurement of Total 25-OHD, with levels <20 ng/mL indicative of Vitamin D deficiency, while levels between 20 ng/mL and 30 ng/mL suggest insufficiency. Optimal levels are >=30 ng/mL. Vitamin D, 25-Hydroxy reports concentrations of two common forms, 25-OHD2 and 25-OHD3. 25-OHD3 indicates both endogenous production and supplementation. 25-OHD2 is an indicator of exogenous sources, such as diet or supplementation. Therapy is based on measurement of Total 25-OHD, with levels <20 ng/mL indicative of Vitamin D deficiency, while levels between 20 ng/mL and 30 ng/mL suggest insufficiency. Optimal levels are > or = 30 ng/mL. VITAMIN D 25 HYDROXY D3 S/P/B 82.2 ng/mL [facility] Comment: This test was developed and its analytical performance characteristics have been determined by [facility]. It has not been cleared or approved by the FDA. This assay has been validated pursuant to the CLIA regulations and is used for clinical purposes. VITAMIN D 25 HYDROXY D2 S/P/B <1.0 ng/mL [facility] Comment: This test was developed and its analytical performance characteristics have been determined by [facility]. It has not been cleared or approved by the FDA. This assay has been validated pursuant to the CLIA regulations and is used for clinical purposes. 09/27/2024 9:10 AM BUILDING EQUIPMENT INSPECTOR 09/27/2024 9:12 AM BUILDING EQUIPMENT INSPECTOR Narrative [facility] [place] [facility] - 09/30/2024 1:46 PM BUILDING EQUIPMENT INSPECTOR FASTING:YES FASTING: YES Resulting Agency Comment Performing Organization Information: Site ID: [id number] Name: [place] [employer] [employer] Address: [address] [place] [address], [address] [place] [address] Director: Elan Tomas PhD,[facility] us Madelyn Nolberto DO LABORATORY Final Result [facility] [place] [facility] [address], [address] [place] [address], [place] * FERRITIN (09/27/2024 9:10 AM BUILDING EQUIPMENT INSPECTOR) FERRITIN 32 16 - 232 ng/mL [facility] 09/27/2024 9:10 AM BUILDING EQUIPMENT INSPECTOR 09/27/2024 9:12 AM BUILDING EQUIPMENT INSPECTOR Narrative [facility] [place] [facility] - 09/30/2024 1:46 PM BUILDING EQUIPMENT INSPECTOR FASTING:YES FASTING: YES Resulting Agency Comment Performing Organization Information: Site ID: [id number] Name: [facility] Address: [address] [place] [address] Director: Courtney Thapa MD us Madelyn Nolberto DO LABORATORY Final Result Performing Organization Address City/[facility]/ZIP Co de Phone Number [facility] [address] [place] [address], [place] * MAMMOGRAM GENERIC (10/09/2023) Anatomical Region Laterality Modality Other 10/09/2023 [facility] Scanned SCANNING Final Resu lt * OUTSIDE CYTOPATH VAG/CERV PAP WITH HPV (07/09/2021) 07/09/2021 Narrative 07/09/2021 Ordered by an unspecified provider. Documents Scanned SCANNING Final Result * COLONOSCOPY GENERIC (SCAN ORDER) (02/22/2021) 02/22/2021 [facility] Scanned SCANNING Final Resu lt from Last 3 Months or Most Recently Relevant to Health Maintenance Insurance [facility] Care Teams Estate Conservator Relationship Specialty Start Date End Date Madelyn Arvizu DO [address] [place] [id number] PCP - General FAMILY PRACTICE 05/23/20
--- OUTSIDE RECORDS SUMMARY | 2024-12-06 13:58 | XMS_ITS | Data Portability ---
Author Organization FARRUKH - [facility], [facility], [facility] Address [address] [place] [address] Assessment No assessment recorded. Plan of Treatment Reminders Order Date Submit Date Provider Last Modified By Organization Details Last Modified Time Details Appointments None recorded. Lab cortisol, saliva - [facility] Neuroadren al Expanded- Urine and Saliva 2022 023 amalic Not available 3 07:25:45 vitamin D3, 25-hydroxy , serum 2022 023 amalic Not available 3 08:49:12 homocystei ne, serum or plasma 2022 023 amalic Not available 3 08:49:13 MTHFR gene mutations, blood or tissue - [facility] Methylatio n Panel - Cheek Swabs 2022 023 amalic Not available 3 08:49:13 magnesium, serum or plasma 2022 023 amalic Not available 3 08:49:13 CMP, serum or plasma 2022 023 [email or web address] Not available 3 21:58:50 TSH + free T4, serum 2022 023 amalic Not available 3 08:49:12 HbA1c (hemoglobi n A1c), blood 2022 023 amalic Not available 3 08:49:12 lipid panel, serum 2022 023 amalic Not available 3 08:49:12 CBC w/ auto diff 2022 023 amalic Not available 3 08:49:12 iron + TIBC + ferritin, serum 2022 023 amalic Not available 3 08:49:12 vitamin B12 + folate, serum or blood 2022 023 amalic Not available 3 08:49:12 Referral None recorded. Procedures None recorded. Surgeries None recorded. Imaging bone density 2022 023 [facility], [address] [address], [place], [address], 3 07:25:53 Medication Orders compounded medication 2023 024 [facility] [address] [place], [address], 4 13:04:25 DERIC-e 400 mg tablet 2023 024 [facility] [address] [place], [address], 4 13:04:18 NAC 600 mg capsule 2023 024 [facility] [address] [place], [address], 4 13:04:18 MethylGuar d Plus 2023 024 [facility] [address] [place], [address], 4 13:04:18 DHEA 10mg 2022 023 [facility] [address] [place], [address], 4 11:30:55 DERIC-e 400 mg tablet 2022 023 [facility] [address] [place], [address], 12:52:47 NAC 600 mg capsule 2022 023 [facility] [address] [place], [address], 12:52:47 MethylGuar d Plus 2022 023 [facility] [address] [place], [address], 12:52:47 Methylfola te 1mg 2022 023 [facility] [address] [place], [address], 19:57:36 compounded medication 2022 023 [facility] [address] [place], [address], 19:57:36 [email or web address] [address] [place], [address], 11:46:07 Patient TargetsNo targets recorded. Patient Instructions Encounter Date Encounter Id Patient Instructions Last Modified By Organization Details Last Modified Time 01/01/2023 [id number] continue own bon e support formula cwessling Not available 01/01/2023 19:54:15 11/24/2023 [id number] Magnesium oxide plus organic forms ca. 1,000 mg per day Try DHEA 5 mg cwessling Not available 11/24/2023 13:02:36 Reason for Referral None Reported. Results Created Date Observation Date Name Description Value Unit Range Abnormal Flag Note LastModifiedBy Organization Detail LastModifiedTime 11/21/1911/22/2022 TSH+F REE T4 TSH 1.730 uIU/m L 0.450- 4.500 Not Available [facility] [address], [place], [address], 11/29/2022 16:36:12 11/21/19 23 11/22/2022 TSH+F REE T4 T4,free(dire ct) 1.16 NG/dL 0.82-1 .77 Not Available [facility] [address], [place], [address], 11/29/2022 16:36:12 11/21/19 23 11/22/2022 CBC WITH DIFFE RENTI AL/PL ATELE T WBC 3.6 x10e3 /uL 3.4-10 .8 Not Available [facility] [address], [place], [address], 11/29/2022 16:36:13 11/21/19 23 11/22/2022 CBC WITH DIFFE RENTI AL/PL ATELE T RBC 4.30 x10e6 /uL 3.77-5 .28 Not Available [facility] [address] [place], [address], 11/29/2022 16:36:13 11/21/19 23 11/22/2022 CBC WITH DIFFE RENTI AL/PL ATELE T hemoglobin 12.8 g/dL 11.1-1 5.9 Not Available [facility] [address] [place], [address], 11/29/2022 16:36:13 11/21/19 23 11/22/2022 CBC WITH DIFFE RENTI AL/PL ATELE T hematocrit 38.4 % 34.0-4 6.6 Not Available [facility] [address] [place], [address], 11/29/2022 16:36:13 11/21/19 23 11/22/2022 CBC WITH DIFFE RENTI AL/PL ATELE T MCV 89 fL 79-97 Not Available [facility] [address], [place], [address], 11/29/2022 16:36:13 11/21/19 23 11/22/2022 CBC WITH DIFFE RENTI AL/PL ATELE T MCH 29.8 pg 26.6-3 3.0 Not Available [facility] [address], [place], [address], 11/29/2022 16:36:13 11/21/19 23 11/22/2022 CBC WITH DIFFE RENTI AL/PL ATELE T MCHC 33.3 g/dL 31.5-3 5.7 Not Available [facility] [address], [place], [address], 11/29/2022 16:36:13 11/21/19 23 11/22/2022 CBC WITH DIFFE RENTI AL/PL ATELE T RDW 12.7 % 11.7-1 5.4 Not Available [facility] [address], [place], [address], 11/29/2022 16:36:13 11/21/19 23 11/22/2022 CBC WITH DIFFE RENTI AL/PL ATELE T platelets 229 x10e3 /uL 150-45 0 Not Available [facility] [address], [place], [address], 11/29/2022 16:36:13 11/21/19 23 11/22/2022 CBC WITH DIFFE RENTI AL/PL ATELE T neutrophils 66 % not estab. Not Available [facility] [address], [place], [address], 11/29/2022 16:36:13 11/21/19 23 11/22/2022 CBC WITH DIFFE RENTI AL/PL ATELE T lymphs 21 % not estab. Not Available [facility] [address] [place], [address], 11/29/2022 16:36:13 11/21/19 23 11/22/2022 CBC WITH DIFFE RENTI AL/PL ATELE T monocytes 9 % not estab. Not Available [facility] [address], [place], [address], 11/29/2022 16:36:13 11/21/19 23 11/22/2022 CBC WITH DIFFE RENTI AL/PL ATELE T eos 3 % not estab. Not Available [facility] [address] [place], [address], 11/29/2022 16:36:13 11/21/19 23 11/22/2022 CBC WITH DIFFE RENTI AL/PL ATELE T basos 1 % not estab. 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 0 Not Available [facility] [address] [place], [address], 11/29/2022 16:36:13 11/21/19 23 11/22/2022 CBC WITH DIFFE RENTI AL/PL ATELE T lymphs (absolute) 0.8 x10e3 /uL 0.7-3. 1 Not Available [facility] [address] [place], [address], 11/29/2022 16:36:13 11/21/19 23 11/22/2022 CBC WITH DIFFE RENTI AL/PL ATELE T monocytes(ab solute) 0.3 x10e3 /uL 0.1-0. 9 Not Available [facility] [address], [place], [address], 11/29/2022 16:36:13 11/21/19 23 11/22/2022 CBC WITH DIFFE RENTI AL/PL ATELE T eos (absolute) 0.1 x10e3 /uL 0.0-0. 4 Not Available [facility] [address], [place], [address], 11/29/2022 16:36:13 11/21/19 23 11/22/2022 CBC WITH DIFFE RENTI AL/PL ATELE T baso (absolute) 0.0 x10e3 /uL 0.0-0. 2 Not Available [facility] [address], [place], [address], 11/29/2022 16:36:13 11/21/19 23 11/22/2022 CBC WITH DIFFE RENTI AL/PL ATELE T immature granulocytes 0 % not estab. Not Available [facility] [address], [place], [address], 11/29/2022 16:36:13 11/21/19 23 11/22/2022 CBC WITH DIFFE RENTI AL/PL ATELE T immature grans (abs) 0.0 x10e3 /uL 0.0-0. 1 Not Available [facility] [address] [place], [address], 11/29/2022 16:36:13 11/21/19 23 11/22/2022 CBC WITH DIFFE RENTI AL/PL ATELE T NRBC TERRAZZO WORKER Not Available [facility] [address] [place], [address], 11/29/2022 16:36:13 11/21/19 23 11/22/2022 CBC WITH DIFFE RENTI AL/PL ANKITLE T hematology comments: TERRAZZO WORKER Not Available [facility] [address], [place], [address], 11/29/2022 16:36:13 11/21/19 23 11/22/2022 COMP. METAB OLIC PANEL (14) glucose 85 mg/dL 70-99 Not Available [facility] [address], [place], [address], 11/29/2022 16:36:15 11/21/19 23 11/22/2022 COMP. METAB OLIC PANEL (14) BUN 14 mg/dL 6-24 Not Available [facility] [address], [place], [address], 11/29/2022 16:36:15 11/21/19 23 11/22/2022 COMP. METAB OLIC PANEL (14) creatinine 0.57 mg/dL 0.57-1 .00 Not Available [facility] [address] [place], [address], 11/29/2022 16:36:15 11/21/19 23 11/22/2022 COMP. METAB OLIC PANEL (14) eGFR 113 mL/mi n/1.7 3 >59 Not Available [facility] [address], [place], [address], 11/29/2022 16:36:15 11/21/19 23 11/22/2022 COMP. METAB OLIC PANEL (14) BUN/creatini ne ratio 25 9-23 above high normal Not Available [facility] [address] [place], [address], 11/29/2022 16:36:15 11/21/19 23 11/22/2022 COMP. METAB OLIC PANEL (14) sodium 139 mmol/ L 134-14 4 Not Available [facility] [address] [place], [address], 11/29/2022 16:36:15 11/21/19 23 11/22/2022 COMP. METAB OLIC PANEL (14) potassium 4.2 mmol/ L 3.5-5. 2 Not Available [facility] [address], [address], 11/29/2022 16:36:15 11/21/19 23 11/22/2022 COMP. METAB OLIC PANEL (14) chloride 102 mmol/ L 96-106 Not Available [facility] [address], [address], 11/29/2022 16:36:15 11/21/19 23 11/22/2022 COMP. METAB OLIC PANEL (14) carbon dioxide, total 24 mmol/ L 20-29 Not Available [facility] [address], [address], 11/29/2022 16:36:15 11/21/19 23 11/22/2022 COMP. METAB OLIC PANEL (14) calcium 9.4 mg/dL 8.7-10 .2 Not Available [facility] [address] [place], [address], 11/29/2022 16:36:15 11/21/19 23 11/22/2022 COMP. METAB OLIC PANEL (14) protein, total 6.5 g/dL 6.0-8. 5 Not Available [facility] [address], [address], 11/29/2022 16:36:15 11/21/19 23 11/22/2022 COMP. METAB OLIC PANEL (14) albumin 4.5 g/dL 3.8-4. 8 Not Available [facility] [address], [place], [address], 11/29/2022 16:36:15 11/21/19 23 11/22/2022 COMP. METAB OLIC PANEL (14) globulin, total 2.0 g/dL 1.5-4. 5 Not Available [facility] [address], [address], 11/29/2022 16:36:15 11/21/19 23 11/22/2022 COMP. METAB OLIC PANEL (14) A/G ratio 2.3 1.2-2. 2 above high normal Not Available [facility] [address], [address], 11/29/2022 16:36:15 11/21/19 23 11/22/2022 COMP. METAB OLIC PANEL (14) bilirubin, total 0.3 mg/dL 0.0-1. 2 Not Available [facility] [address], [place], [address], 11/29/2022 16:36:15 11/21/19 23 11/22/2022 COMP. METAB OLIC PANEL (14) alkaline phosphatase 80 IU/L 44-121 Not Available [facility] [address], [address], 11/29/2022 16:36:15 11/21/19 23 11/22/2022 COMP. METAB OLIC PANEL (14) AST (SGOT) 28 IU/L 0-40 Not Available [facility] [address] [place], [address], 11/29/2022 16:36:15 11/21/19 23 11/22/2022 COMP. METAB OLIC PANEL (14) ALT (SGPT) 24 IU/L 0-32 Not Available [facility] [address] [place], [address], 11/29/2022 16:36:15 11/21/19 23 11/22/2022 LIPID PANEL cholesterol, total 206 mg/dL 100-19 9 above high normal Not Available [facility] [address] [place], [address], 11/29/2022 16:36:16 11/21/19 23 11/22/2022 LIPID PANEL triglyceride s 29 mg/dL 0-149 Not Available [facility] [address] [place], [address], 11/29/2022 16:36:16 11/21/19 23 11/22/2022 LIPID PANEL HDL cholesterol 95 mg/dL >39 Not Available [facility] [address] [place], [address], 11/29/2022 16:36:16 11/21/19 23 11/22/2022 LIPID PANEL VLDL cholesterol melvi 6 mg/dL 5-40 Not Available [facility] [address] [place], [address], 11/29/2022 16:36:16 11/21/19 23 11/22/2022 LIPID PANEL LDL chol calc ([facility]) 105 mg/dL 0-99 above high normal Not Available [facility] [address] [place], [address], 11/29/2022 16:36:16 11/21/19 23 11/22/2022 LIPID PANEL comment: 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 WORKER Not Available [facility] [address] [place], [address], 11/29/2022 16:36:16 11/21/19 23 11/22/2022 IRON AND TIBC iron bind.cap.(TI BC) 327 ug/dL 250-45 0 Not Available [facility] [address] [place], [address], 11/29/2022 16:36:18 11/21/19 23 11/22/2022 IRON AND TIBC UIBC 251 ug/dL 131-42 5 Not Available [facility] [address], [place], [address], 11/29/2022 16:36:18 11/21/19 23 11/22/2022 IRON AND TIBC iron 76 ug/dL 27-159 Not Available [facility] [address], [place], [address], 11/29/2022 16:36:18 11/21/19 23 11/22/2022 IRON AND TIBC iron saturation 23 % 15-55 Not Available [facility] [address] [place], [address], 11/29/2022 16:36:18 11/21/19 23 11/29/2022 25-HY DROXY VITAM IN D LCMS D2+D3 25-hydroxy, vitamin D 52 NG/mL Refer ence Range : All Ages: Targe t level s 30 - 100 Not Available [facility] [address] [place], [address], 11/29/2022 16:36:20 11/21/19 23 11/29/2022 25-HY DROXY VITAM IN D LCMS D2+D3 25-hydroxy, vitamin D-2 <1.0 NG/mL This test was theodore wilson and its perfo rmanc e rebecca cottori stics deter mined by [facility]. It has not been clear ed or appro camelia by the Food and Drug Admin istra tion. Not Available [facility] [address] [place], [address], 11/29/2022 16:36:20 11/21/19 23 11/29/2022 25-HY DROXY VITAM IN D LCMS D2+D3 25-hydroxy, vitamin D-3 52 NG/mL This test was theodore wilson and its perfo rmanc e rebecca cteri stics deter mined by [facility]. It has not been clear ed or appro camelia by the Food and Drug Admin istra tion. Not Available [facility] [address] [place], [address], 11/29/2022 16:36:20 11/21/19 23 11/22/2022 VITAM IN B12 AND FOLAT E vitamin B12 1308 pg/mL 232-12 45 above high normal Not Available [facility] [address], [place], [address], 11/29/2022 16:36:21 11/21/19 23 11/22/2022 VITAM IN B12 AND FOLAT E folate (folic acid), serum >20.0 NG/mL >3.0 A serum folat e tyson ntrat ion of less than 3.1 ng/mL is consi dered to repre sent clini melvi defic iency . Not Available [facility] [address], [place], [address], 11/29/2022 16:36:21 11/21/1911/22/2022 HEMOG LOBIN A1C hemoglobin A1C 5.6 % 4.8-5. 6 Predi abete s: 5.7 - 6.4 Diabe karl: >6.4 Glyce brunilda contr ol for adult s with diabe karl: <7.0 Not Available [facility] [address], [place], [address], 11/29/2022 16:36:22 11/21/19 23 11/22/2022 HOMOC YST(E )INE homocyst(E)i ne 5.4 umol/ L 0.0-14 .5 Not Available [facility] [address], [place], [address], 11/29/2022 16:36:24 11/21/19 23 11/22/2022 MAGNE SIUM magnesium 2.2 mg/dL 1.6-2. 3 Not Available [facility] [address], [place], [address], 11/29/2022 16:36:25 11/21/19 23 11/22/2022 MARLEY TIN ferritin 70 NG/mL 15-150 Not Available [facility] [address], [place], [address], 11/29/2022 16:36:27 11/20/[address] 23 CT, chest + abdom en + pelvi s, w/o contr ast No observ ation record ed. [email or web address] Not Available 2022 22:34:23 11/20/19 23 bone densi ty No observ ation record ed. [email or web address] Not Available 2022 15:03:27 11/20/19 23 upper endos copy (EGD) with colon oscop y (PROC ) No observ ation record ed. [email or web address] Not Available 2022 19:29:26 12/23/19 23 bone densi ty No observ ation record ed. GURINDER [facility] [address] [address], [place], [address], 12/24/2022 21:06:43 Result Notes None recorded. Problems Name Problem SNOMED Code Status Onset Date Resolution Date Notes Provider Name and Address Organization Details Recorded Time Nutritional deficiency disorder 42354964 Active 2023 Eric Morrell MD [address] [place], [address] , [facility] 4 13:00:10 Acne 34499107 Active 2022 Eric Morrell MD [address] [place], [address] , [facility] 3 15:06:04 Premature menopause 638921291 Active 2022 Eric Morrell MD [address] [place] [address], [address] , [facility] 3 15:07:06 Osteoporosis 80642009 Active 2022 Eric Morrell MD [address] [place] [address], [address] , [facility] 3 15:07:12 Stasis dermatitis 56280543 Active 2022 Eric Morrell MD [address] [place] [address], [address] , [facility] 3 15:07:27 Constipation 02334633 Active 2022 Eric Morrell MD [address] [place] [address], [address] , [facility] 3 15:07:31 Cramp in lower limb 031243516 Active 2022 Eric Morrell MD [address] [place] [address], [address] , [facility] 3 15:07:34 Fatigue 08241246 Active 2022 Eric Morrell MD [address] [place] [address], [address] , [facility] 3 15:07:35 Abnormal liver function 99761475 Active 2022 Eric Morrell MD [address] [place] [address], [address] , [facility] 3 15:07:39 Underweight 294220625 Active 2022 Eric Morrell MD [address] [place] [address], [address] , [facility] 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CS[facility] 15:16:25 Problem Notes None recorded. Procedures Surgical History Date Name Laterality Status Provider Name and Address Organization Details Recorded Time Tonsillectomy completed More Castro [facility]CS[facility] 11/17/2022 18:51:53 Adenoid [facility] 11/17/2022 18:51:59 Imaging Results Imaging Date Name Status LastModified by Organiz ation Details LastModified Time 11/20/2022 CT, chest + abdomen + pelvis, w/o contrast completed Information not available 12/22/2022 22:34:23 11/20/2022 bone density completed Information not available 11/20/2022 15:03:27 11/20/2022 upper endoscopy (EGD) with colonoscopy (PROC) completed Information not available 01/01/2023 19:29:26 12/22/2022 bone density completed [facility] [address] [address], [place], [address], 12/24/2022 21:06:43 Procedure Notes None recorded. Medical Equipment None Reported. Allergies Allergen ID Allergen Name Allergen Category Reaction Reaction Severity Criticality Documentation Date Start Date Code Code System Note Provider Name and Address Organization Details Recorded Time 20758 house dust mite environme nt Not available Not available Not available 11/17/2022 36992 UNK FARRUKH [facility]CSandra 18:24:56 28305 latex environme nt,medica tion Not available Not available Not available 11/17/2022 42988 91 RxNorm More gabriel [place] Fredy Castro [facility]CSandra 18:25:01 Medications Name Sig Start Date Stop Date Status Note LastModified by Organization Details LastModified Time Methylfolat e 1mg 1 every even day 2022 active Not Available Not Available Not Avai lable compounded medication 1 s.l. q uneven day 2022 active Not Available Not Available Not Avai lable Sepia 200 2d; 12x 3 bid 07/08 completed Not Available Not Available Not Available MethylGuard Plus 1qd 2023 active Not Available Not Available Not Avai lable MethylGuard Plus 1qd 2022 active Not Available Not Available Not Avai lable DHEA 10mg 1qd 11/24 completed Not Available Not Available Not Available compounded medication take one every Thursday through 2023 active Not Available Not Available Not Avai lable tretinoin 0.025 % topical cream APPLY TO THE AFFECTED AREA(S) BY TOPICAL ROUTE ONCE DAILY active Not Available Not Available No t Available metronidazo le 500 mg tablet TAKE 1 TABLET BY MOUTH TWICE DAILY FOR 5 DAYS 11/24 completed Not Available Not Available Not Available DERIC-e 400 mg tablet Take 1 tablet twice a day by oral route. 2023 active Not Available Not Available Not Avai lable NAC 600 mg capsule Take 1 capsule twice a day by oral route. 2023 active Not Available Not Available Not Avai lable clascoteron e 1 % topical cream APPLY A THIN LAYER TO THE AFFECTED AREA(S) BY TOPICAL ROUTE 2 TIMES PER DAY active Not Available Not Available No t Available Vitals Date Recorded Body height Body mass index (BMI) Body weight Body temperature Heart rate Systolic blood pressure Diastolic blood pressure Provider Name and Address Organization Details Last Updated DateTime 3 170.18 cm 17 kg/m2 70606.4 1 g 97.9 [degF] 69 /min 108 mm[Hg] 68 mm[Hg] More Saldivar [facility] 3 13:35:46 Date Recorded Body height Body mass index (BMI) Body weight Heart rate Body temperature Systolic blood pressure Diastolic blood pressure Provider Name and Address Organization Details Last Updated DateTime 3 170.18 cm 17 kg/m2 28428.8 5 g 71 /min 97.9 [degF] 103 mm[Hg] 68 mm[Hg] Rosalinda Manriquez [facility] 3 18:30:45 Date Recorded Body height Body mass index (BMI) Body weight Body temperature Heart rate Systolic blood pressure Diastolic blood pressure Provider Name and Address Organization Details Last Updated DateTime 3 170.18 cm 16.9 kg/m2 63062.9 8 g 97.7 [degF] 69 /min 100 mm[Hg] 65 mm[Hg] More Castro [facility] 3 11:45:33 Date Recorded Body height Body mass index (BMI) Body weight Heart rate Body temperature Systolic blood pressure Diastolic blood pressure Provider Name and Address Organization Details Last Updated DateTime 4 170.18 cm 16.7 kg/m2 36627.2 3 g 73 /min 98.2 [degF] 96 mm[Hg] 60 mm[Hg] More CHADWIKC Matthew [facility] 4 11:30:10 Social History None recorded. Functional Status None recorded. Mental Status None recorded. Family History Relationship Description Onset Age of this Age Resolved Age Notes LastModified by Organization Details LastModified Time Mother Arthritis amalic Not available 11/17/2022 18:29:08 Paternal Grandmother Arthritis amalic Not available 10/30 18:29:08 Paternal Grandmother Heart disease amalic Not available 2022 18:30:26 Paternal Grandmother Hypertensive disorder amalic Not available 2022 18:30:44 Father Malignant neoplasm of urinary bladder amalic Not available 2022 18:29:21 Maternal Grandfather Malignant neoplastic disease amalic Not available 2022 18:29:32 Maternal Grandfather Glomerulonep hritis eventu danicay had dialys is cwessling Not available 11/20/2022 14:31:13 Maternal Grandfather Hypertensive disorder amalic Not available 2022 18:30:44 Maternal Grandmother Malignant neoplastic disease amalic Not available 2022 18:29:32 Maternal Grandmother Hypertensive disorder amalic Not available 2022 18:30:44 Maternal Grandmother Osteoporosis amalic Not available 0 11/17/2022 18:30:56 Paternal Grandfather Type 2 diabetes mellitus amalic Not available 2022 18:29:41 Paternal Grandfather Heart disease amalic Not available 2022 18:30:26 Paternal Grandfather Hypertensive disorder amalic Not available 2022 18:30:44 Notes:Paternal Grandfather: Stroke Maternal Grandmother: Stroke Grandmothers: Thyroid Medical History Condition Response Coronary Artery Disease N Gout N Blood Diseases N Kidney Stones N Hyperthyroidism N Hypothyroidism N Depression N COPD N Developmental or Behavioral Disorders N Anxiety Disorder N Muscle, Joint, or Bone Problems N Vision or Eye Problems N Arthritis N Head Injury/Concussion N Congenital Anomalies N Cancer N Stroke N ADHD N Bladder or Kidney Problems N Hospital Admission other than N High Cholesterol N Liver Disease N Headaches N Fibromyalgia N Kidney Disease N Ear or Hearing Problems N Thyroid Problems N Skin Problems Y Anemia N Constipation Y Mental Illness N Diabetes N Bedwetting N Seizures/Epilepsy N Heart Problems/Murmur N Tuberculosis N Diverticulitis N Asthma N Allergies N Reflux/GERD Y Heart Disease N Pulmonary Embolism N Hypertension N Osteoporosis Y Chicken Pox Y Autism Spectrum Disorder (ASD) N Gynecological HistoryNo gynecological history recorded. Obstetrics History GPAL:G 0 P 0 0 0 0 Past Encounters Encounter ID Performer Location Encounter Start Date Encounter Closed Date Diagnosis/Indication Diagnosis SNOMED-CT Code Diagnosis ICD10 Code Diagnosis Note [id number] Eric Morrell MD Main Office [address] [place] [address] 11/20/2022 13:26:13 11/20/2022 15:34:28 Acne 99191322 L70.9 Stasis dermatitis 135219 05 I87.2 Constipation 32630421 K5 9.00 Cramp in lower limb 4499 93472 R25.2 Fatigue 49175241 R53.83 Premature menopause 3737 79790 E28.319 Abnormal l iver function 02176819 K76.89 Osteoporosis 33774903 M8 1.0 Underweight 028196392 R6 3.6 5,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 34234152 E72.12 [id number] Eric Morrell MD Main Office [address] [place] [address] 01/01/2023 18:18:26 01/01/2023 19:59:47 Acne 40882411 L70.9 Stasis dermatitis 798304 05 I87.2 Constipation 50724209 K5 9.00 Cramp in lower limb 4499 14115 R25.2 Fatigue 83481947 R53.83 Premature menopause 3737 68382 E28.319 Abnormal l iver function 93789380 K76.89 Osteoporosis 80192237 M8 1.0 Underweight 910257234 R6 3.6 5,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 64380062 E72.12 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 [id number] Eric Morrell MD Main Office [address] [place] [address] 07/08/2023 11:27:47 07/08/2023 12:54:20 Acne 87959794 L70.9 Stasis dermatitis 951217 05 I87.2 Constipation 54327601 K5 9.00 Cramp in lower limb 4499 10130 R25.2 Fatigue 51896648 R53.83 Premature menopause 3737 07631 E28.319 Abnormal l iver function 23995458 K76.89 Osteoporosis 99847154 M8 1.0 Underweight 302120196 R6 3.6 5,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 55647849 E72.12 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 Nutritiona l deficiency disorder 65205716 E63.9 [id number] Eric Morrell MD Main Office [address] [place] [address] 11/24/2023 11:25:12 11/24/2023 13:09:03 Acne 38195571 L70.9 Stasis dermatitis 775854 05 I87.2 Constipation 49738143 K5 9.00 Cramp in lower limb 4499 22898 R25.2 Fatigue 23742823 R53.83 Premature menopause 3737 35790 E28.319 Abnormal l iver function 80566405 K76.89 Osteoporosis 22759364 M8 1.0 Underweight 242050305 R6 3.6 5,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 46345123 E72.12 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 Nutritiona l deficiency disorder 58624642 E63.9 Health Concerns Section Related Observation LastModified by Organization Detai ls LastModified Time None Recorded Concern Status LastModified by Organization Details LastModified Time None Recorded Advance Directives Directive None Recorded Payers Encounter Date Sequence Insurance Name Policy Number Policy Davies Covered Member ID Davies Member ID Guarantor Name 11/20/2022 1 [facility] [id number] Shiraz Patel [id number] Lilia Patel 01/01/2023 1 [facility] [id number] Shiraz Patel [id number] Lilia Patel 07/08/2023 1 [facility] (O) [id number] Shiraz Patel [id number] Lilia Patel 11/24/2023 1 [facility] ([facility]) [id number] Shiraz Patel [id number] Lilia Patel Notes Date Note Type Note Provider Name and Address Organization Details Recorded Time 3 text/htm l Get establishedPrefers natural medicine. Acne - stopped Spironolactone because of dizziness. Non rotatory. [place] uneasy walking.Then feet and ankles swelled. Brown spots there.Was told to use compression stocking.Face flares and goes down againPreviously tried Megan. mur., [place], Silicea, Pulsatilla, Ant. crud., but not currently slight earaches Vaginal discharge comes and goes. Small hard stools - retained stool on imaging.Bloating has been worked up. Leg crampsFoot cramps >off spironolactone. Denies serious or life threatening illnesses. Has been thin all her life - highest weight was 120. . 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 Ab2 - used Clomid to be able to conceive. Feels mediocre. Sinus issues Likes carbs, dairy, meat. Eats good portions. Early menopause after the of her daughter 2011. FSH 42 12/2020 A1c 5.9 08/2021; ALT 43; Albumen the high at 5.1 Typically feels chilly.Does not drink coffee. Osteopenia hip, osteoporosis spine 05/2020 uses supplemental calcium. Has MTHFR C677T unsure if one or 2 copies Eric Morrell MD [address] [place], [address], [facility] 11/20/2022 15:17:53 3 text/htm l Follow up.No perceived effect from the Sepia. Acne - stopped Spironolactone because of dizziness. Non rotatory. [place] uneasy walking.Then feet and ankles swelled. Brown spots there.Was told to use compression stocking.Face flares and goes down againPreviously tried Megan. mur., [place], Silicea, Pulsatilla, Ant. crud., but not currentlyslight earachesVaginal discharge comes and goes.Small hard stools - retained stool on imaging.Bloating has been worked up.Leg crampsFoot cramps >off spironolactone.Denies serious or life threatening illnesses.Has been thin all her life - highest weight was 120.. 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 Ab2 - used Clomid to be able to conceive.Feels mediocre.Sinus issuesLikes carbs, dairy, meat. Eats good portions.Early menopause after the of her daughter 2011. FSH 42 4546V4p 5.9 08/2021; ALT 43; Albumen the high at 5.1Typically feels chilly.Does not drink coffee.Osteopenia hip, osteoporosis spine 05/2020 uses supplemental calcium.Has MTHFR C677T unsure if one or 2 copies Eric Morrell MD [address] [place], [address], [facility] 01/01/2023 19:59:08 3 text/htm l Test resultsOsteoporosisFace breaking outNot much help from high potency multivitamin.Sepia: had one period, then a very light one, and none since then.Wakes well in the morning Eric Morrell MD [address] [place], [address], [facility] 07/08/2023 12:52:51 4 text/htm l Welt Wheeler prescribed Winlevi 1 % Topical Cream Antiandrogens Not yet used. for adult acne.Welt Wheeler is Mars.SAMe q day NAC bid has made her calmer.DHEA seemed to worsen acne. Therefore stopped.Magnesium (Oxide+glycinate+malate+tau rate) helps BMs. Eric Morrell MD [address] [facility], [place], [address], [facility] 11/24/2023 13:04:54 OBGyn Episode No OBEpisode recorded.
--- OUTSIDE RECORDS SUMMARY | 2024-12-06 13:58 | XMS_ITS | Encounter Summary ---
Author Organization [facility] Address [address] [place] [address] Care Team Providers Care Vice President Name Role Phone Shikha David MD Primary Care Provider [phone] Encounter Details Date Type Department Care Team (Late st Contact Info) Description 10/04/2015 Nurse Triage Report [facility] ABSTRACTION Maria Antonia Esquivel Social History Tobacco Use Types Packs/Day Years Used Date Smoking Tobacco: Never Alcohol Use Standard Drinks/Week Comments Not Asked 0 (1 standard drink = 0.6 oz pur e alcohol) Comments Unknown Sex and Gender Information Value Date Recorded Sex Assigned at Not on file Legal Sex Female 9:37 AM CURRICULUM DEVELOPER Gender Identity Not on file Sexual Orientation Not on file documented as of this encounter Progress Notes * Maria Antonia Esquivel - 10/04/2015 3:49 PM CST CHART DOCUMENTATION ONLY Call Type: Triage Call Presenting Problem: ' I want to know if Dr. Krick is in network. <<<<<<<< TRIAGE NOTE >>>>>>>> <<<<<<<< TRIAGE/OUTCOME >>>>>>>> Guideline Title: [employer] Contact Center Recommended Disposition: Call Local Agency Immediately Original Inclination: Self Management Intended Action: Self Management Physician Contacted: No Caller transferred to [facility] ? YES ICULUM DEVELOPER documented in this encounter Plan of Treatment Not on file documented as of this encounter Visit Diagnoses Not on filedocumented in this encounter Care Teams Vice President Relationship Specialty Start Date End Date Shikha David MD [address] [address] PCP - General 09/14/15 12/15/17 documented as of this encounter
--- OUTSIDE RECORDS SUMMARY | 2024-12-06 13:58 | XMS_ITS | Patient Health Summary ---
Author Organization [facility] Address [address] [place] [address] Care Team Providers Care Lining Maker Name Role Phone Shikha David MD Primary Care Provider [phone] Note from [facility],non-owned Affiliates and Associated Physician Practices is amultiple site organization consisting of ambulatory clinics and hospital sitesin [place], [place], [place] and [place]. This disclosure is being madepursuant to the Care Everywhere program and may not contain all information available regarding this patient. Last updated 18.[facility] Active Problems Problem Noted Date Diagnosed Date Abnormal levels of other serum enzymes 5 Acne 01/08/2015 Other seasonal allergic rhinitis 01/08/2015 Amenorrhea 01/08/2015 Social History Tobacco Use Types Packs/Day Years [...] Mass Index 15.96 02/27/2015 2:10 PM CDT Procedures * COPPER URINE(Performed 01/11/2015) * JORIY-4-WQATYDIXAXY BLOOD PHENOTYPING PANEL(Performed 01/08/2015) * TISSUE TRANSGLUTAMINASE AB IGA(Performed 01/08/2015) * HEPATITIS B SURFACE ANTIBODY(Performed 01/08/2015) * HEPATITIS B CORE ANTIBODY TOTAL(Performed 01/08/2015) * HEPATITIS A ANTIBODY(Performed 01/08/2015) * PT-INR [facility](Performed 01/08/2015) * CBC W AUTO DIFFERENTIAL(Performed 01/08/2015) * COMPREHENSIVE METABOLIC PANEL(Performed 01/08/2015) Results * (ABNORMAL) COPPER URINE (01/11/2015 5:10 AM CDT) [facility] Copper Urine See below(A) 15 - 60 mcg/24 h [facility] ([facility]) Comment: Unable to calculate result since analyte concentration is below detection limit of this method. Volume (UVOL) 2500 mL [facility] ([facility]) Comment: REPORT COMMENT: SPLIT 01/08/2015 FROM [id number] 01/10 @ 5:10A.M - 01/11 @ 5:10 FASTING:NO Test Performed at: [facility] [address] [address] AUTUMN BENZ MD,FCAP Urine specimen (specimen) 01/11/2015 5:10 AM CDT 01/11/2015 11:45 PM CDT Iggy Osman MD LAB - URIN E CHEMISTRY ORDERABLES [facility] ([facility]) * PT-INR [facility] (01/08/2015 2:23 PM CDT) [facility] INR 1.0 [facility] ([facility]) Comment: Reference Range 0.9-1.1 Moderate-intensity Warfarin Therapy 2.0-3.0 Higher-intensity Warfarin Therapy 3.0-4.0 PT 10.2 9.0 - 11.5 sec [facility] ([facility]) Comment: For more information on this test, go to: http://education.Tradegecko.Drybar/faq/NHG643 REPORT COMMENT: IS PATIENT ON HEPARIN?->N FASTING:NO Test Performed at: [facility] [address] [place] [address] RICHARD J. HAN,DO,MPH Blood specimen (specimen) BLOOD SPECIMEN / Unknown 01/08/2015 2:23 PM CDT 01/08/2015 2:31 PM CDT Narrative [facility] ([facility]) - 01/09/2015 4:00 AM CDT Is patient on Heparin, Argatroban or Dabigatran?->N Iggy Osman MD LAB - COAG ULATION ORDERABLES Performing Organization Address [facility] de Phone Number [facility] ([facility]) * TISSUE TRANSGLUTAMINASE AB IGA (01/08/2015 2:23 PM CDT) Pathologist [facility] TTG Antibody IgA 1 <4 U/mL [facility] ([facility]) Comment: Value Interpretation <4 U/mL: No Antibody Detected >or=4 U/mL: Antibody Detected REPORT COMMENT: IS PATIENT ON HEPARIN?->N FASTING:NO Test Performed at: [facility] [address] [address] QUINTON SAMUEL MD,PHD Blood specimen (specimen) BLOOD SPECIMEN / Unknown 01/08/2015 2:23 PM CDT 01/08/2015 2:31 PM CDT Iggy Osman MD LAB - SERO LOGY ORDERABLES Performing Organization Address [facility] de Phone Number [facility] ([facility]) * [id number]-[id number] BLOOD PHENOTYPING PANEL (01/08/2015 2:23 PM CDT) Pathologist [facility] Ilwhg-1-Zbygvzaid in Phenotype SEE NOTE [facility] ([facility]) Comment: Phenotyping shows PI*M1M2, a normal variant of PI*MM. 90% of normal individuals have the MM phenotype, with normal quantitative AAT levels. Many phenotypic patterns have been described, including deficiency states with F, S, Z, or other alleles. As a general estimation, compared to M allele of 100% of normal Q-4-Xydmtuxigqa protein, the S allele produces approximately 60% and the Z allele 20%. For example, an MS phenotype would have about 80% of normal F-8-Wixmtwuewcm protein level, a 50% contribution from the M allele and 30% from the S allele. A ZZ phenotype would have about 20% of normal levels. The F allele has normal Y-8-Heugfhkcmqz levels, but the kinetics of elastase inhibition is not as efficient as an M allele product; F alleles should be considered functionally mildly deficient. REPORT COMMENT: IS PATIENT ON HEPARIN?->N FASTING:NO Test Performed at: [facility] [address] [place] [address] ABBY ROSADO MD PHD Blood specimen (specimen) BLOOD SPECIMEN / Unknown 01/08/2015 2:23 PM CDT 01/08/2015 2:31 PM CDT Iggy Osman MD LAB - CHEM ISTRY ORDERABLES [facility] ([facility]) * (ABNORMAL) CBC W AUTO DIFFERENTIAL (01/08/2015 2:23 PM CDT) WBC 9.3 3.8 - 10.8 Thousand/u L [facility] ([facility]) RBC 4.42 3.80 - 5.10 Million/uL [facility] ([facility]) Hemoglobin 13.0 11.7 - 15.5 g/dL [facility] ([facility]) Hematocrit 39.8 35.0 - 45.0 % [facility]) MCV 90.2 80.0 - 100.0 fL [facility] ([facility]) MCH 29.5 27.0 - 33.0 pg [facility] ([facility]) MCHC 32.7 32.0 - 36.0 g/dL [facility] ([facility]) RDW-CV 13.6 11.0 - 15.0 % [facility]) Platelet 310 140 - 400 Thousand/u L [facility] ([facility]) Neutrophils Absolute 7,840(H) 1,500 - 7,800 cells/uL [facility] ([facility]) Lymphocyte Absolute Manual 1,004 850 - 3,900 cells/uL [facility] ([facility]) Monocytes Absolute 409 200 - 950 cells/uL [facility] ([facility]) Eosinophils Absolute 28 15 - 500 cells/uL [facility] ([facility]) Basophil Absolute Manual 19 0 - 200 cells/uL [facility] ([facility]) Neutrophils % 84.3 % [facility]) Lymphocytes % 10.8 % [facility]) Monocytes % 4.4 % [facility]) Eosinophils % 0.3 % [facility]) Basophil % 0.2 % [facility]) Comment: REPORT COMMENT: IS PATIENT ON HEPARIN?->N FASTING:NO Test Performed at: [facility] [address] [place] [address] RICHARD HAN DO,MPH Blood specimen (specimen) BLOOD SPECIMEN / Unknown 01/08/2015 2:23 PM CDT 01/08/2015 2:31 PM CDT Iggy Osman MD LAB - ATUL TOLOGY ORDERABLES [facility] ([facility]) * (ABNORMAL) COMPREHENSIVE METABOLIC PANEL (01/08/2015 2:23 PM CDT) Glucose 142(H) 65 - 99 mg/dL [facility] ([facility]) Comment: Fasting reference interval BUN 19 7 - 25 mg/dL [facility] ([facility]) Creatinine 0.59 0.50 - 1.10 mg/dL [facility] ([facility]) eGFR non- 116 > OR = 60 mL/min/1. 73m2 [facility] ([facility]) eGFR 135 > OR = 60 mL/min/1. 73m2 [facility] ([facility]) BUN/Creatinine Ratio NOT APPLICABLE 6 - 22 (calc) [facility]) Sodium 138 135 - 146 mmol/L [facility] ([facility]) Potassium 4.2 3.5 - 5.3 mmol/L [facility] ([facility]) Chloride 100 98 - 110 mmol/L [facility] ([facility]) CO2 29 19 - 30 mmol/L [facility] ([facility]) Calcium 9.6 8.6 - 10.2 mg/dL [facility] ([facility]) Protein Total 6.9 6.1 - 8.1 g/dL [facility] ([facility]) Albumin 4.3 3.6 - 5.1 g/dL [facility] ([facility]) Globulin 2.6 1.9 - 3.7 g/dL (calc) [facility] ([facility]) Albumin/Globuli n Ratio 1.7 1.0 - 2.5 (calc) [facility] ([facility]) Bilirubin Total 0.4 0.2 - 1.2 mg/dL [facility] ([facility]) Alkaline Phosphatase 90 33 - 115 U/L [facility] ([facility]) AST 25 10 - 30 U/L [facility] ([facility]) ALT 27 6 - 29 U/L [facility] ([facility]) Comment: REPORT COMMENT: IS PATIENT ON HEPARIN?->N FASTING:NO Test Performed at: [facility] [address] [place] [address] RICHARD HAN DO,MPH Blood specimen (specimen) BLOOD SPECIMEN / Unknown 01/08/2015 2:23 PM CDT 01/08/2015 2:31 PM CDT Iggy Osman MD LAB - CHEM ISTRY ORDERABLES Performing Organization Address [facility] Phone Number [facility] ([facility]) * HEPATITIS B SURFACE ANTIBODY (01/08/2015 2:23 PM CDT) Hepatitis B Virus Surface Antibody <5 mIU/mL [facility] ([facility]) Comment: Patient does not have immunity to hepatitis B virus. Effective February 06, 2014 this test is being performed using the Volo Broadband Chemiluminesence method. Quantitative results from this method should not be used interchangeably with other methods. REPORT COMMENT: IS PATIENT ON HEPARIN?->N FASTING:NO Test Performed at: [facility] [address] RICHARD HAN DO,MPH Blood specimen (specimen) BLOOD SPECIMEN / Unknown 01/08/2015 2:23 PM CDT 01/08/2015 2:31 PM CDT Iggy Osman MD LAB - CHEM ISTRY ORDERABLES Performing Organization Address [facility] de Phone Number [facility] ([facility]) * HEPATITIS B CORE ANTIBODY (01/08/2015 2:23 PM CDT) Hepatitis B Core Virus Antibody Total NON-REACTI VE NON-REACT CARLY [facility] ([facility]) Comment: Test Performed at: [facility] [address] [place] [address] RICHARD HAN DO,MPH Blood specimen (specimen) BLOOD SPECIMEN / Unknown 01/08/2015 2:23 PM CDT 01/08/2015 2:31 PM CDT Iggy Osman MD LAB - CHEM ISTRY ORDERABLES [facility] ([facility]) * HEPATITIS A ANTIBODY (01/08/2015 2:23 PM CDT) Hepatitis A Virus Antibody Total NON-REACTI VE NON-REACT CARLY [facility] ([facility]) Comment: Test Performed at: [facility] [address] [place] [address] RICHARD HAN DO,MPH Blood specimen (specimen) 01/08/2015 2:23 PM CDT 01/08/2015 2:31 PM CDT Iggy Osman MD LAB - CHEM ISTRY ORDERABLES [facility] ([facility]) Care Teams Lining Maker Relationship Specialty Start Date End Date Shikha David MD [address] [place] [phone] PCP - General 04/15/10
--- OUTSIDE RECORDS SUMMARY | 2024-12-06 13:58 | XMS_ITS | Encounter Summary ---
Author Organization [facility] Address [facility] [place] [address] Care Team Providers Care Sonography Technologist Name Role Phone Madelyn Arvizu DO Primary Care Provider [phone] Encounter Details Date Type Department Care Team (Late st Contact Info) Description 01/12/2021 Web Wonks Message Enc [facility] Family [facility] - [place] [address], [address] [place] [address] Madelyn Arvizu DO [address] [place], [place] [phone] RE: Test Results Social History Tobacco Use Types Packs/Day Years Used Date Smoking Tobacco: Never Smokeless Tobacco: Never Alcohol Use Standard Drinks/Week Comments Yes 0 (1 standard drink = 0.6 oz pur e alcohol) PHQ-2 Answer Date Recorded PHQ-2 Score - If the patient scores above 3, please move on to questions 3-9 4 01/08/2021 Comments No Sex and Gender Information Value Date Recorded Sex Assigned at Not on file Legal Sex Female 4:09 PM CDT Gender Identity Not on file Sexual Orientation Not on file COVID-19 Exposure Response Date Recorded In the last month, have you been in contact with someone who was confirmed or suspected to have Coronavirus / COVID-19? No / Unsure 01/08/2021 8:32 AM CDT documented as of this encounter Plan of Treatment Not on file documented as of this encounter Visit Diagnoses Not on filedocumented in this encounter Additional Health Concerns Assessment Noted Time PHQ-9 Depression Total Score: 13 021 8:48 AM CDT documented as of this encounter Care Teams Sonography Technologist Relationship Specialty Start Date End Date Madelyn Arvizu DO [address] [place] [address] PCP - General FAMILY PRACTICE 05/23/20 documented as of this encounter
--- OUTSIDE RECORDS SUMMARY | 2024-12-06 13:58 | XMS_ITS | Referral Summary ---
Author Organization [facility] [address] Address [address] [place] [address] Care Team Providers Care Pet Adoption Counselor Name Role Phone Madelyn Arvizu DO Primary Care Provider [phone] Encounters Date Type Department Care Team Description 10/27/2024 Telephone [facility] [address] [place] [phone] Yary Britt NP 10/26/2024 2:30 PM BAND SPLICER Procedure visit [facility] [address] [place] [phone] Rose Ayon Au.D. Dizziness and giddiness (Primary Dx) 10/10/2024 9:30 AM BAND SPLICER Procedure visit [facility] [address] [place] [phone] Rose Ayon Au.D. Dizziness and giddiness (Primary Dx) 10/10/2024 9:00 AM BAND SPLICER Office Visit [facility] [address] [place] [phone] Yary Britt NP Dizziness and giddiness (Primary Dx); Impacted cerumen of left ear from Last 3 Months Allergies Active Allergy Reactions Criticality Noted Date Comments Niacin Flushing (skin) Low 10/10/2024 Vitamin B3 flushing Medications cholecalciferol (VITAMIN D-3) 5,000 unit tablet Take 1,000 Int'l Units by mouth daily Active vitamin K2 40 mcg tablet Take 100 mcg by mouth Active calcium carbonate-vitam in D3 2,500 mg (1,000 mg elemental)-800 unit tablet Take by mouth Acti ve magnesium citrate 100 mg tablet Take by mouth Active magnesium glycinate 100 mg tablet Take by mouth Active MAGNESIUM MALATE, BULK, MISC Active UNABLE TO FIND - ENTER DRUG NAME IN NOTES TO PHARMACY Jarrow bone up Act bubba [id number] hydrofolate-B6 5,000 mcg-1,360 mcg DFE-2.5 mg tablet,chewable Take by mouth Active multivitamin with minerals tablet Take 1 tablet by mouth daily Active turmeric, bulk, 95 % powder Active acetylcysteine 600 mg capsule Take by mouth A ctive coenzyme Q10 200 mg capsule Take 1 capsule (200 mg total) by mouth daily Active digestive enzymes combo no.7 capsule Take by mouth Act bubba betaine HCL 300 mg tablet Take by mouth Active PEPSIN 3,000 DIGESTION MISC Activ e UNABLE TO FIND - ENTER DRUG NAME IN NOTES TO PHARMACY Marni merrill Active s-adenosylmethi onine 400 mg tablet Take by mouth Active UNABLE TO FIND - ENTER DRUG NAME IN NOTES TO PHARMACY Xlear nasal spray Active UNABLE TO FIND - ENTER DRUG NAME IN NOTES TO PHARMACY Clinere carbamide peroxide Active clascoterone (Winlevi) 1 % cream Apply topically 2 (two) times a day Active Active Problems Problem Noted Date Diagnosed Date Dizziness and giddiness 10/10/2024 Impacted cerumen of left ear 10/10/2024 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 Overview (01/02/2017): NONTOX NODUL GOITER NOS Social History Tobacco Use Types Packs/Day Years Used Date Smoking Tobacco: Never Smokeless Tobacco: Never Tobacco Cessation:Counseling Given: Not Answered Alcohol Use Standard Drinks/Week Comments No 0 (1 standard drink = 0.6 oz pur e alcohol) Comments Unknown Sex and Gender Information Value Date Recorded Sex Assigned at Not on file Legal Sex Female 1:36 AM BAND SPLICER Gender Identity Not on file Sexual Orientation Not on file Last Filed Vital Signs Vital Sign Reading Time Taken Comments Blood Pressure - - Pulse - - Temperature - - Respiratory Rate 18 10/10/2024 8:56 AM BAND SPLICER Oxygen Saturation - - Inhaled Oxygen Concentration - - Weight 49.9 kg (110 lb) 10/10/2024 8:56 AM BAND SPLICER Height 170.2 cm (5' 7 ) 10/10/2024 8:56 AM BAND SPLICER Body Mass Index 17.23 10/10/2024 8:56 AM BAND SPLICER Plan of Treatment Not on file Procedures Procedure Name Priority Date/Time Associated Diagnosis Comments SCREENING MAMMOGRAM Routine 06/06/2015 1 2:50 PM CDT from Last 3 Months or Most Recently Relevant to Health Maintenance Results * Screening Mammogram (06/06/2015 12:50 PM CDT) Anatomical Region Laterality Modality Breast N/A Mammography 06/06/2015 12:5 0 PM CDT Narrative 06/07/2015 2:05 PM CDT XU YORK M.D. FINAL REPORT ACC# Date Time Exam [id number] Jun 06, 2015 12:50:00 BMV [id number] [place] Screening Mamm Technologist(s): Zuleyka Parra; ; EXAMINATION: Mammogram Technique: Bilateral Full-Field Digital Screening Mammogram was performed. Views obtained: bilateral craniocaudal and bilateral mediolateral oblique. Computer Aided Detection was performed with CMGE.3 version 9.3. Mammogram Findings: This is a baseline study. The breasts are extremely dense which may lower the sensitivity of mammography. There are calcifications in both breasts. IMPRESSION: Calcifications in both breasts are benign. Annual screening mammography is recommended. OVERALL FINAL ASSESSMENT: BI-RADS CATEGORY 2: Benign. Requested By: Dictated By: XU YORK M.D. on Jun 07 2015 2:05P This document has been electronically signed by: XU YORK M.D. on Jun 07 2015 2:04P [id number] Procedure Note Provider, MD Tiffany - 01/23/2017 UX YORK M.D. FINAL REPORT ACC# Date Time Exam [id number] Jun 06, 2015 12:50:00 BMV [id number] Van Screening Mamm Technologist(s): Zuleyka Parra; ; EXAMINATION: Mammogram Technique: Bilateral Full-Field Digital Screening Mammogram was performed. Views obtained: bilateral craniocaudal and bilateral mediolateral oblique. Computer Aided Detection was performed with CMGE.3 version 9.3. Mammogram Findings: This is a baseline study. The breasts are extremely dense which may lower the sensitivity of mammography. There are calcifications in both breasts. IMPRESSION: Calcifications in both breasts are benign. Annual screening mammography is recommended. OVERALL FINAL ASSESSMENT: BI-RADS CATEGORY 2: Benign. Requested By: Dictated By: XU YORK M.D. on Jun 07 2015 2:05P This document has been electronically signed by: XU YORK M.D. on Jun 07 2015 2:04P [id number] Historical Provider MD [facility] PROCEDURES Margaux l Result from Last 3 Months or Most Recently Relevant to Health Maintenance Insurance [facility] Care Teams Pet Adoption Counselor Relationship Specialty Start Date End Date Madelyn Arvizu DO [address] [facility] [address] [place] [address] PCP - General Family Medicine 03/21/24
--- OUTSIDE RECORDS SUMMARY | 2024-12-06 13:58 | XMS_ITS | Referral Summary ---
Author Organization [facility] Address [address] [place] [address] Care Team Providers Care Maintenance Data Analyst Name Role Phone Shikha David MD Primary Care Provider Source Comments [facility] [address],non-owned Affiliates and Associated Physician Practices is amultiple site organization consisting of ambulatory clinics and hospital sitesin [place], [place], [place] and [place]. This disclosure is being madepursuant to the Care Everywhere program and may not contain all information available regarding this patient. Last updated 18.[facility] [address] Active Problems Problem Noted Date Diagnosed Date [...] 02/27/2015 2:10 PM CDT Plan of Treatment Not on file Care Teams Maintenance Data Analyst Relationship Specialty Start Date End Date Shikha David MD [address] [place] [phone] PCP - General 04/15/10
--- OUTSIDE RECORDS SUMMARY | 2024-12-06 13:58 | XMS_ITS | Encounter Summary ---
Author Organization [facility] Address [address] [place] [address] Care Team Providers Care Nursing Instructor Name Role Phone Unavailable Primary Care Provider Unavailabl e Encounter Details Date Type Department Care Team (Late st Contact Info) Description 12/03/2024 External Device Data [facility] ABSTRACTION Provider, Abstract NO ADDRESS ON FILE Social History Tobacco Use Types Packs/Day Years Used Date Smoking Tobacco: Never Smokeless Tobacco: Never Alcohol Use Standard Drinks/Week Comments Yes 0 (1 standard drink = 0.6 oz pur e alcohol) Feeling Safe Answer Date Recorded Within the last year, have y ou been afraid of your partner or ex-partner? No 07/09/2021 Within the last year, have y ou been humiliated or emotionally abused in other ways by your partner or ex-partner? No Within the last year, have y ou been kicked, hit, slapped, or otherwise physically hurt by your partner or ex-partner? No 07/09/2021 Within the last year, have y ou been raped or forced to have any kind of sexual activity by your partner or ex-partner? No 07/09/2021 Social Connections Answer Date Recorded In a typical week, how many times do you talk on the telephone with family, friends, or neighbors? Once a week 07/09/2021 How often do you get togethe r with friends or relatives? Once a week 07/09/2021 How often do you attend [facility] or mu-ism services? More than 4 times per year 07/09/2021 Do you belong to any clubs o r organizations such as christianity groups, unions, fraternal or athletic groups, or school groups? No 07/09/2021 How often do you attend meet ings of the clubs or organizations you belong to? Never 07/09/2021 Are you , , di vorced, , never , or living with a partner? 07/09/2021 Financial Resource Strain Answer Date R ecorded How hard is it for you to pa y for the very basics like food, housing, medical care, and heating? Not very hard 07/09/2021 Food Insecurity Answer Date Recorded In the past 12 months, have you worried that your food would run out before you had money to buy more? Never true 07/09/2021 In the past 12 months, did y ou run out of food and didn't have money to buy more? Never true 07/09/2021 Transportation Needs Answer Date Record ed In the past 12 months, has l ack of transportation kept you from medical appointments or from getting medications? No 06/28 In the past 12 months, has l ack of transportation kept you from meetings, work, or from getting things needed for daily living? No 07/09/2021 Housing Stability Answer Date Recorded In the last 12 months, was t here a time when you were not able to pay the mortgage or rent on time? No 07/09/2021 Number of Times Moved in the Last Year Not on fi le 07/09/2021 (RETIRED) In the last 12 thu ths, was there a time when you did not have a steady place to sleep or slept in a skilled nursing (including now)? No 07/09/2021 Comments No Sex and Gender Information Value Date Recorded Sex Assigned at Not on file Legal Sex Female 9:37 AM HIP HOP PERFORMERS Gender Identity Not on file Sexual Orientation Not on file documented as of this encounter Plan of Treatment Not on file documented as of this encounter Visit Diagnoses Not on filedocumented in this encounter Additional Health Concerns Assessment Noted Time PHQ-9 Depression Total Score: 2 07/09/20 21 10:57 AM CDT documented as of this encounter
--- OUTSIDE RECORDS SUMMARY | 2024-12-06 13:58 | XMS_ITS | Clinical Summary ---
Author Organization [facility] Address [address] [place] [address] Phone Care Team Providers Care Community Health Counselor Name Role Phone Unavailable Primary Care Provider Unavailabl e Allergies No known active allergies Medications spironolactone (ALDACTONE) 100 MG Tablet Take 100 mg by mouth 2 times daily. Active Multiple Vitamins-Minera ls (MULTIVITAMIN PO) Take 1 Tab by mouth. Active [place]-3 Fatty Acids (OMEGA 3 PO) Take 1,200 mg by mouth 2 times daily. Active Pyridoxine HCl (B-6 PO) Take 50-100 mg by mouth every 3 days. Active Cyanocobalamin (B-12 PO) Take 250 mcg by mouth every 3 days. Active Cholecalciferol (VITAMIN D3 PO) Take 1,000 Int'l Units by mouth daily. Active B Complex Vitamins (VITAMIN B COMPLEX PO) Take 1 Tab by mouth every 3 days. Active fluticasone (FLONASE) 50 MCG/ACT Suspension 1-2 Sprays by Nasal route as needed. Use in each nostril as directed. Active Loratadine 10 MG Capsule Take 1 Cap by mouth daily. Active fexofenadine (ERROL) 180 MG Tablet Take 180 mg by mouth daily. Active clindamycin (CLINDAGEL) 1 % Gel Apply 1.2 % daily. use thin film on affected area Active dapsone 100 MG Tablet daily. Active adapalene (DIFFERIN) 0.1 % Gel Apply nightly. use small amount as directed Active pimecrolimus (ELIDEL) 1 % Cream Apply daily. 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 Gender Identity Not on file Sexual Orientation Not on file Plan of Treatment Health Maintenance Due Date Last Done Comments Hepatitis C Virus (HCV) Screening 1976 Hepatitis B Immunization (1 of 3 - 19+ 3-dose series) 1995 Pap Smear 1997 Cervical Cancer Screening (CCS) 2006 HPV/Cotest 2006 Discussion re Starting/Frequency of Mammograms 2016 Colonoscopy 2021 Colorectal Cancer Screening 2021 Influenza Immunization (#1) 05/29/202401/2017, 07/07/2016 SARS-COV-2 Immunization ( season) 2024 Respiratory Syncytial Virus (RSV) Immunization (Adult) (1 - 1-dose 75+ series) 2051 DTaP/Tdap/Td Immunization Discontinued 06/15/2009 TdaP Immunization Completed 06/15/2009 Meningococcal Immunization (ACWY) Aged Out No longer eligible based on patient's age to complete this topic Pneumococcal Immunization Combined Aged Out No longer eligible based on patient's age to complete this topic Rotavirus Immunization Aged Out No lo nger eligible based on patient's age to complete this topic
--- OUTSIDE RECORDS SUMMARY | 2024-12-06 13:58 | XMS_ITS | Clinical Summary ---
Author Organization [facility] [place] [address] Address [address] [place] [address] Care Team Providers Care Barrel Rib Matting Machine Operator Name Role Phone Madelyn Arvizu DO Primary Care Provider [phone] Allergies Active Allergy Reactions Criticality Noted Date [...] ENTER DRUG NAME IN NOTES TO PHARMACY Sage bone up Act bubba D19-[id number] hydrofolate-B6 5,000 mcg-1,360 mcg DFE-2.5 mg tablet,chewable [...] 02/11/2014 Overview (01/02/2017): NONTOX NODUL GOITER NOS Encounters Date Type Department Care Team Description 10/27/2024 Telephone [facility] Otolaryngology [address] [place] [phone] Yary Britt NP 10/26/2024 2:30 PM TEASEL GIG OPERATOR Procedure visit [facility] Ot[facility] [address] [place] [phone] Rose Ayon Au.D. Dizziness and giddiness (Primary Dx) 10/10/2024 9:30 AM TEASEL GIG OPERATOR Procedure visit [facility] Ot[facility] [address] [place] [phone] Rose Ayon Au.D. Dizziness and giddiness (Primary Dx) 10/10/2024 9:00 AM TEASEL GIG OPERATOR Office Visit [facility] Ot[facility] [address] [place] [phone] Yary Britt NP Dizziness and giddiness (Primary Dx); Impacted cerumen of left ear from Last 3 Months Surgical History Surgery Date Site/Laterality Comments OTHER SURGICAL HISTORY 2009 D&C TONSILECTOMY, ADENOIDECTOMY, BILATERAL MYRINGOTOMY AND TUBES 09/28/1979 - 09/27/1980 Bilateral Medical History Medical History Date Comments Hx Other Medical misscariage Allergic rhinitis Osteoporosis Dizziness Ear problems Family History Medical History Relation Name Comments Cancer Father Bladder Thyroid disease Other 1 Family histo ry of Thyroid disorder; Diabetes type II Other 2 Family hist ory of Diabetes -Type 2; Relation Name Status Comments Father Other 1 Other 2 Social History Tobacco Use Types Packs/Day Years Used Date Smoking Tobacco: Never Smokeless Tobacco: Never Tobacco Cessation:Counseling Given: Not Answered Alcohol Use Standard Drinks/Week Comments No 0 (1 standard drink = 0.6 oz pur e alcohol) Comments Unknown Sex and Gender Information Value Date Recorded Sex Assigned at Not on file Legal Sex Female 1:36 AM TEASEL GIG OPERATOR Gender Identity Not on file Sexual Orientation Not on file Obstetrics History Last Filed Vital Signs Vital Sign Reading Time Taken Comments Blood Pressure - - Pulse - - Temperature - - Respiratory Rate 18 10/10/2024 8:56 AM TEASEL GIG OPERATOR Oxygen Saturation - - Inhaled Oxygen Concentration - - Weight 49.9 kg (110 lb) 10/10/2024 8:56 AM TEASEL GIG OPERATOR Height 170.2 cm (5' 7 ) 10/10/2024 8:56 AM TEASEL GIG OPERATOR Body Mass Index 17.23 10/10/2024 8:56 AM TEASEL GIG OPERATOR Plan of Treatment Health Maintenance Due Date Last Done Comments Cervical Cancer Screening 1976 Colon Cancer Screening-Colonoscopy 1976 Depression Screening 1976 Hepatitis C Screening 1976 Hepatitis B Screening 1994 Regular Well Visit/Exam 18-64 1994 Breast Cancer Screening-Mammogram 06/06/2016 06/06/2015 DTaP/Tdap/Td Vaccine (2 - Td or Tdap) 06/15/2019 06/15/2009 Influenza Vaccine (#1) 2024 3, 07/23/2022, 08/07/2021, Additional history exists Pneumococcal vaccine <65 Aged Out No longer eligible based on [...] M.D. FINAL REPORT ACC# Date Time Exam [id number] Jun 06, 2015 12:50:00 BMV [id number] Van Screening Mamm Technologist(s): Zuleyka aPrra; ; EXAMINATION: Mammogram Technique: Bilateral Full-Field Digital Screening Mammogram was performed. Views obtained: bilateral craniocaudal and bilateral mediolateral oblique. Computer Aided Detection was performed with OrderAhead 1.3 version 9.3. Mammogram Findings: This is a [...] YORK M.D. on Jun 07 2015 2:04P [id number] Procedure Note Provider, MD Tiffany - 01/23/2017 XU YORK M.D. FINAL REPORT ACC# Date Time Exam [id number] Jun 06, 2015 12:50:00 BMV [id number] Manish Screening Mamm Technologist(s): Zuleyka Parra; ; EXAMINATION: Mammogram Technique: Bilateral Full-Field Digital Screening Mammogram was performed. Views obtained: bilateral craniocaudal and bilateral mediolateral oblique. Computer Aided Detection was performed with OrderAhead 1.3 version 9.3. Mammogram Findings: This is a [...] YORK M.D. on Jun 07 2015 2:04P [id number] us Historical Provider MD [facility]AM[facility] PROCEDURES Margaux l Result from Last 3 Months or Most Recently Relevant to Health Maintenance Insurance [facility] Address: [address] [address] [facility] Address: [address] [address] [facility]/PPO Address: [facility] [id number] [place] [address] Care Teams Barrel Rib Matting Machine Operator Relationship Specialty Start Date End Date Madelyn Arvizu DO [address] [facility] [address] [place] [address] PCP - General Family Medicine 03/21/24
--- OUTSIDE RECORDS SUMMARY | 2024-12-06 13:58 | XMS_ITS | Encounter Summary ---
Author Organization [facility] Address [address] [place] [address] Care Team Providers Care Personnel Assistant Name Role Phone Madelyn Arvizu DO Primary Care Provider [phone] Encounter Details Date Type Department Care Team (Late st Contact Info) Description 06/08/2020 [place] Message Enc [facility] Family Medicine - [place] [address] [facility], [address] [place] [phone] Madelyn Arvizu DO [address] [place], [place] [phone] ct chest and abdomen and pelvis Social History Tobacco Use Types Packs/Day Years Used Date Smoking Tobacco: Never Smokeless Tobacco: Never Comments No Sex and Gender Information Value Date Recorded Sex Assigned at Not on file Legal Sex Female 4:09 PM CDT Gender Identity Not on file Sexual Orientation Not on file COVID-19 Exposure Response Date Recorded In the last month, have you been in contact with someone who was confirmed or suspected to have Coronavirus / COVID-19? No / Unsure 05/23/2020 12:47 PM CDT documented as of this encounter Plan of Treatment Not on file documented as of this encounter Visit Diagnoses Not on filedocumented in this encounter Care Teams Personnel Assistant Relationship Specialty Start Date End Date Madelyn Arvizu DO [address] [place], [place] [phone] PCP - General FAMILY PRACTICE 05/23/20 documented as of this encounter
--- OUTSIDE RECORDS SUMMARY | 2024-12-06 13:58 | XMS_ITS | Clinical Summary ---
Author Organization [facility] Address [address] [place] [address] Phone Care Team Providers Care Shell Sieve Operator Name Role Phone Unavailable Primary Care Provider Unavailabl e Allergies Active Allergy Reactions Criticality Noted Date Comments Latex Unknown 07/17/2023 Medications LACTOBAC NO.41/BIFIDOBACT NO.7 (PROBIOTIC-10 ORAL) Take by mouth. Active MULTIVITAMIN ORAL Take by mouth. Active dapsone (Aczone) 7.5 % Gel with Pump as needed. 12/13/2019 Active Active Problems Problem Noted Date Diagnosed Date Abnormal uterine bleeding (AUB) 12/05/2019 Mildly underweight adult 12/05/2019 Rectus diastasis of lower abdomen 10/10/2013 Encounters Date Type Department Care Team Description 12/03/2024 External Device Data ST[facility] ABSTRACTION Provider, Abstract 12/02/2024 External Device Data [facility] ABSTRACTION Provider, Abstract 11/29/2024 External Device Data [facility] ABSTRACTION Provider, Abstract 11/15/2024 External Device Data [facility] ABSTRACTION Provider, Abstract 10/19/2024 External Device Data [facility] ABSTRACTION Provider, Abstract 10/18/2024 External Device Data [facility] ABSTRACTION Provider, Abstract 10/11/2024 External Device Data [facility] ABSTRACTION Provider, Abstract from Last 3 Months Family History Medical History Relation Name Comments Healthy Daughter Cancer Father bladder cancer Unknown Maternal Grandfather Unknown Maternal Grandmother Healthy Mother Unknown Paternal Grandfather Unknown Paternal Grandmother Healthy Sister Healthy Son Breast Cancer Neg Hx Ovarian Cancer Neg Hx Uterine Cancer Neg Hx Relation Name Status Comments Daughter Alive Father Alive Maternal Grandfather Maternal Grandmother Mother Alive Paternal Grandfather Paternal Grandmother Sister Alive Son Alive Social History Tobacco Use Types Packs/Day Years [...] week 07/09/2021 How often do you attend [facility] or jehovah's witness services? More than 4 times per year 07/09/2021 Do you belong to any clubs o r organizations such as mandaen groups, unions, fraternal or athletic groups, or [...] le 07/09/2021 (RETIRED) In the last 12 thu, was there a time when you did not have a steady place to sleep or slept in a [place] [facility] facility (including now)? No 07/09/2021 Comments No Sex and Gender Information Value Date Recorded Sex Assigned at Not on file Legal Sex Female 9:37 AM COMMERCIAL CENSUS T[employer]ER Gender Identity Not on file Sexual Orientation Not on file Last Filed Vital Signs Vital Sign Reading Time Taken Comments Blood Pressure 124/78 01/25/2024 10:58 AM CDT Pulse 78 10/10/2013 1:50 PM COMMERCIAL C[employer]US T[employer]ER Temperature - - Respiratory Rate 16 10/10/2013 1:50 PM COMMERCIAL C[employer]US T[employer]ER Oxygen Saturation - - Inhaled Oxygen Concentration - - Weight 48.1 kg (106 lb) 01/25/2024 10:58 AM CDT Height 170.2 cm (5' 7 ) 01/25/2024 10:58 AM CDT Body Mass Index 16.6 01/25/2024 10:58 AM CDT Plan of Treatment Health Maintenance Due Date Last Done Comments HEPATITIS B VACCINES (1 of 3 - 19+ 3-dose series) 1995 BREAST CANCER SCREENING 2016 DTAP/TDAP/TD VACCINES (2 - T d or Tdap) 06/15/2019 06/15/2009 COLORECTAL SCREENING 2021 Colorectal Cancer Screening 2021 FIT-DNA Q 3 years 2021 FIT/FOBT Q 1 year 2021 Flex Sig/CT Colonography Q 5 years 2021 CERVICAL CANCER SCREENING 01/24/2027 01/25/2024, 08/2021 INFLUENZA VACCINE Completed 07/26/2024, , 08/07/2021, Additional history exists Procedures Procedure Name Priority Date/Time Associated Diagnosis Comments CERV/VAG CYTO AGE BASED SCREEN PAP Routine 01/25/2024 11:44 AM CDT Screening for cervical cancer from Last 3 Months or Most Recently Relevant to Health Maintenance Results * CERV/VAG CYTO AGE BASED SCREEN PAP (01/25/2024 11:44 AM CDT) COMMENT (PAP): [facility] [place] Comment: This order for age-based cervical cancer and STI screening follows ACOG guidelines(PB 168, 140, JVN841). See individual assays for performing site location. CLINICAL INFORMATION [facility] [place] Comment:None given LAST MENSTRUAL PERIOD [facility] [place] Comment:NONE GIVEN PREV PAP: [facility] [place] Comment:NONE GIVEN PREV BX: [facility] [place] Comment:NONE GIVEN SOURCE [facility] [place] Comment:Endocervix ADEQUACY: [facility] [place] Comment: Satisfactory for evaluation. Endocervical/transformation zone component present. Age and/or menstrual status not provided PAP INTERP [facility] [place] Comment: Cytology Results: Negative for intraepithelial lesion or malignancy. COMMENT (PAP TEST) [facility] [place] Comment: This Pap test has been evaluated with computer assisted technology. COLLECTIVE BARGAINING SPECIALIST: [facility] [place] Comment: JENNIE GILBERT(ASCP) CT screening location: [place] [address] [place] [address] EXPLANATORY NOTE [facility] [place] Comment: EXPLANATORY NOTE: The Pap is a screening test for cervical cancer. It is not a diagnostic test and is subject to false negative and false positive results. It is most reliable when a satisfactory sample, regularly obtained, is submitted with relevant clinical findings and history, and when the Pap result is evaluated along with historic and current clinical information. HPV E6/E7 Not Detected Not Detected [facility] [place] Comment: Methodology: Motel Operator-Mediated Amplification This assay detects E6/E7 viral messenger RNA (mRNA) from 14 high-risk HPV types (16,18,31,33,35,39,45,51,52,56,58,59,66,68). Cervical sources are required for HPV testing. If a vaginal source from a patient who has had a total hysterectomy with removal of cervix was submitted, please contact the testing laboratory for alternative testing options. For additional information, please refer to http://education.Avectra/faq/SMP730z0 (This link if provided for information/ educational purposes only.) Test Performed at: [facility] [id number] [id number] Courtney ALFARO Genital SWAB OF ENDOCERVIX / Unknown 01/25/2024 11:44 AM CDT 01/26/2024 3:45 AM CDT us Noah Fountain MD PATHOLOGY/CYTOLOGY ORDERABLES Final Result [facility] [phone] [facility] [address] [address] [place] [id number] from Last 3 Months or Most Recently Relevant to Health Maintenance Insurance
== END 2024-12-06 12:47 | disposition home or self-care (01) ==
PROVIDERS: PCP Family Medicine; Visit Provider Family Medicine
DX: Z13.820 Encounter for screening for osteoporosis (principal)
CPT/HCPCS: 77080

== ENCOUNTER 2025-02-03 12:05 | Outpatient (CLI) | payer OTHER, SELFPAY ==
--- NOTE | ~2025-02-03 | MM_ITS ---
EXAMINATION: MM screening umair BI w david HISTORY: Screening TECHNIQUE: Craniocaudal and mediolateral oblique 3-D tomosynthesis images were obtained and synthetic 2-D images were generated. CAD analysis was submitted and interpreted. COMPARISON: Comparison to multiple prior studies sequentially, with oldest reviewed study dated 12/24. BREAST PARENCHYMAL COMPOSITION: Dense: The breasts are extremely dense, which lowers the sensitivity of mammography. FINDINGS: Stable benign-appearing breast calcifications. There is no evidence of suspicious mass, melvi cification, or architectural distortion to suggest malignancy in either breast. There has been no linda picious interval change. IMPRESSION: 1. No mammographic evidence of malignancy. 2. Recommend routine screening mammography in one year. BI-RADS Category 1: Negative Reviewed, dictated and finalized at location A.
== END 2025-02-03 12:06 | disposition home or self-care (01) ==
PROVIDERS: PCP Family Medicine; Visit Provider Family Medicine
DX: Z12.31 Encounter for screening mammogram for malignant neoplasm of breast (principal)
CPT/HCPCS: 77063; 77067